=== PATIENT | female | born 1940 | race Caucasian/White ===

== ENCOUNTER 2021-06-25 10:48 | Inpatient (IN) | payer MEDICARE, OTHER ==
[2021-06-25] MEDS ORDERED: Sodium Chloride 0.9% 10 ML Syringe FLUSH PRN ×3 (11:15→16:15)
--- NOTE | 2021-06-25 12:11 | CR ---
Chest: Portable view of the chest was obtained. Comparison: Prior chest x-ray of 10/26/15. Heart is enlarged. Slight tortuosity of the thoracic aorta is seen. Pulmonary vessels are mildly congested. Possible small right-sided pleural effusion. Mild increased density within the right lung base is seen either due to atelectasis or small area of pneumonia. Bony structures show nothing acute. Impression: 1. Findings suspicious for mild CHF. 2. Possible small right-sided pleural effusion. 3. Mild parenchymal density is also noted within the right lung base either due to atelectasis or small area of pneumonia. Diagnostic code #3
[2021-06-25 12:14] LABS: CORONAVIRUS COVID-19 NAA NEGATIVE (NEGATIVE)
--- NOTE | 2021-06-25 12:31 | EDM.PDOC ---
ED HPI GENERAL MEDICAL PROBLEM - General Chief Complaint: Respiratory Problem Stated Complaint: SOB Time Seen by Provider: 06/25/21 11:05 Source of Information: Reports: Patient History Limitations: Reports: No Limitations - History of Present Illness INITIAL COMMENTS - FREE TEXT/NARRATIVE: The patient presents from Dr Friend's office with shortness of breath and chest tightness. This has been going on for a couple of week. She went to see Dr Friend and her oxygen saturations were in the 70s. The shortness of breath is worse when she is laying on her back and with exertion. She noted that she had palpitations at times when this started. She has no fever, chills, or cough. She has no abdominal pain, nausea or vomiting. She has some swelling to her legs. She has a history of essential hypertension, palpitations, diastolic dysfunction, sleep apnea and hypothyroidism. She is not on any diuretics and she has never needed any. She has bee vaccinated for COVID and influenza. Onset: Gradual Duration: Week(s): (2) Severity: Moderate Improves with: Reports: None Worsens with: Reports: None Associated Symptoms: Reports: Shortness of Breath. Denies: Chest Pain, Cough, Fever/Chills, Headaches, Nausea/Vomiting - Related Data Allergies Allergy/AdvReac Type Severity Reaction Status Date / Time quinine Allergy Severe Hives Verified 06/25/21 11:03 Home Meds: Home Meds Albuterol/Ipratropium [DuoNeb 3.0-0.5 MG/3 ML] 3 ml NEB Q8HRRT PRN #30 neb 10/26/15 [Rx] Amoxicillin/Potassium Clav [Augmentin 875-125 Tablet] 1 each PO BID #20 tablet 10/26/15 [Rx] Hydrochlorothiazide 25 mg PO DAILY 10/26/15 [History] Levothyroxine 25 mcg PO ACBREAKFAST 10/26/15 [History] Losartan/Hydrochlorothiazide [Losartan-HCTZ 100-25 MG] 1 tab PO DAILY 10/26/15 [History] Nebulizer and Compressor [Comp-Air Elite Comp System] 1 each MC Q8H #1 each 10/26/15 [Rx] Potassium Chloride [Klor-Con 10] 20 meq PO DAILY 10/26/15 [History] Prochlorperazine [Compazine] 10 mg PO Q8H PRN #20 tablet 10/26/15 [Rx] Spironolactone [Aldactone] 25 mg PO DAILY 10/26/15 [History] atenoloL [Atenolol] 50 mg PO DAILY 10/26/15 [History] traMADol HCl [Tramadol HCl] 50 mg PO BID 10/26/15 [History] Past Medical History HEENT History: Reports: Cataract, Macular Degeneration Cardiovascular History: Reports: Hypertension Respiratory History: Reports: Sleep Apnea RADIOLOGY SPECIALIST History: Reports: Other RADIOLOGY SPECIALIST History: Tubal ligation Musculoskeletal History: Reports: Arthritis Endocrine/Metabolic History: Reports: Diabetes, Type II - Past Surgical History HEENT Surgical History: Reports: Cataract Surgery GI Surgical History: Reports: Appendectomy Other GI Surgeries/Procedures: exlap Female Surgical History: Reports: Hysterectomy, Tubal Ligation Social & Family History - Tobacco Use Tobacco Use Status *Q: Former Tobacco User Used Tobacco, but Quit: Yes Month/Year Tobacco Last Used: 30 years ago - Recreational Drug Use Recreational Drug Use: No ED ROS GENERAL - Review of Systems Review Of Systems: See Below Constitutional: Reports: No Symptoms HEENT: Reports: No Symptoms Respiratory: Reports: Shortness of Breath Cardiovascular: Reports: Edema, Palpitations. Denies: Chest Pain Endocrine: Reports: No Symptoms GI/Abdominal: Reports: No Symptoms : Reports: No Symptoms Musculoskeletal: Reports: No Symptoms ED EXAM, GENERAL - Physical Exam Exam: See Below Exam Limited By: No Limitations General Appearance: Alert, No Apparent Distress Ears: Normal External Exam Nose: Normal Inspection Head: Atraumatic, Normocephalic Neck: Normal Inspection Respiratory/Chest: No Respiratory Distress, Decreased Breath Sounds Cardiovascular: Regular Rate, Rhythm, No Edema, No Murmur GI/Abdominal: Soft, Non-Tender, No Organomegaly, No Mass Back Exam: Normal Inspection Extremities: Pedal Edema Neurological: Alert, Oriented, No Motor/Sensory Deficits #1 Interpretation EKG Date: 06/25/21 Time: 11:06 Rhythm: Other (sinus bradycardia) Rate (Beats/Min): 59 [place]: Normal P-Wave: Present QRS: Normal ST-T: Normal QT: Normal Course - Vital Signs Last Recorded V/S: Last Vital Signs Temp 97.1 F 06/25/21 11:00 Pulse 66 06/25/21 11:00 Resp 23 H 06/25/21 11:00 BP 153/78 H 06/25/21 11:00 Pulse Ox 75 L 06/25/21 11:00 - Orders/Labs/Meds Orders: Active Orders 24 hr Category Date Time Status Admission Status [Patient Status] [ADT] Routine ADT 06/25/21 15:38 Active Cardiac Monitoring [RC] . DIRECTED Care 06/25/21 11:15 Active Oxygen Therapy [RC] PRN Care 06/25/21 11:15 Active Peripheral IV Care [RC] . DIRECTED Care 06/25/21 11:16 Active Sodium Chloride 0.9% [Normal Saline] 100 ml Med 06/25/21 13:00 Active IV ASDIRECTED Sodium Chloride 0.9% [Saline Flush] Med 06/25/21 11:15 Active 10 ml FLUSH ASDIRECTED PRN Sodium Chloride 0.9% [Saline Flush] Med 06/25/21 12:46 Active 10 ml FLUSH ONETIME PRN Peripheral IV Insertion Adult [OM.PC] Stat Oth 06/25/21 11:15 Ordered Medication Orders Sodium Chloride (Normal Saline) 100 mls @ 75 mls/hr IV ASDIRECTED JOSÉ ANTONIO Last Admin: 06/25/21 12:52 Dose: 75 mls/hr Documented by: YOVANA Sodium Chloride (Sodium Chloride 0.9% 10 Ml Syringe) 10 ml FLUSH ASDIRECTED PRN PRN Reason: Keep Vein Open Last Admin: 06/25/21 11:25 Dose: 10 ml Documented by: DICKSON Sodium Chloride (Sodium Chloride 0.9% 10 Ml Syringe) 10 ml FLUSH ONETIME PRN PRN Reason: IV FLUSH Last Admin: 06/25/21 12:52 Dose: 10 ml Documented by: YOVANA Labs: Laboratory Tests 06/25/21 06/25/21 06/25/21 Range/Units 11:15 11:15 11:15 WBC 4.20 (3.98-10.04) K/mm3 RBC 5.70 H (3.98-5.22) M/mm3 Hgb 15.5 (11.2-15.7) gm/dl Hct 52.6 H (34.1-44.9) % MCV 92.3 D (79.4-94.8) fl MCH 27.2 (25.6-32.2) pg MCHC 29.5 L (32.2-35.5) g/dl RDW Std Deviation 60.3 H (36.4-46.3) fL Plt Count 115 L (182-369) K/mm3 MPV 9.6 (9.4-12.3) fl Neut % (Auto) 59.4 (34.0-71.1) % Lymph % (Auto) 29.0 (19.3-51.7) % [place] % (Auto) 9.5 (4.7-12.5) % Eos % (Auto) 1.7 (0.7-5.8) Baso % (Auto) 0.2 (0.1-1.2) % Neut # (Auto) 2.49 (1.56-6.13) K/mm3 Lymph # (Auto) 1.22 (1.18-3.74) K/mm3 [place] # (Auto) 0.40 H (0.24-0.36) K/mm3 Eos # (Auto) 0.07 (0.04-0.36) K/mm3 Baso # (Auto) 0.01 (0.01-0.08) K/mm3 PT 11.8 (9.7-12.0) SECONDS INR 1.07 APTT 26.4 (21.7-31.4) SECONDS D-Dimer, Quantitative 1.34 H (0.19-0.50) mg/L Sodium 145 (136-145) mEq/L Potassium 4.7 (3.5-5.1) mEq/L Chloride 105 (98-107) mEq/L Carbon Dioxide 36 H (21-32) mEq/L Anion Gap 8.7 (5-15) BUN 22 H (7-18) mg/dL Creatinine 1.1 H (0.55-1.02) mg/dL Est Cr Clr Drug Dosing 39.67 mL/min Estimated GFR (MDRD) 48 (>60) mL/min BUN/Creatinine Ratio 20.0 H (14-18) Glucose 106 H (70-99) mg/dL Lactic Acid (0.4-2.0) mmol/L Calcium 9.0 (8.5-10.1) mg/dL Total Bilirubin 1.2 H (0.2-1.0) mg/dL AST 14 L (15-37) U/L ALT 10 L (14-59) U/L Alkaline Phosphatase 61 (46-116) U/L Troponin I < 0.017 (0.00-0.056) ng/mL C-Reactive Protein <0.2 (<1.0) mg/dL NT-Pro-B Natriuret Pep (0-450) pg/mL Total Protein 6.7 (6.4-8.2) g/dl Albumin 3.8 (3.4-5.0) g/dl Globulin 2.9 gm/dL Albumin/Globulin Ratio 1.3 (1-2) Influenza Type A RNA (NEGATIVE) Influenza Type B RNA (NEGATIVE) SARS-CoV-2 RNA (MELIDA) (NEGATIVE) 06/25/21 06/25/21 06/25/21 Range/Units 11:15 11:28 11:29 WBC (3.98-10.04) K/mm3 RBC (3.98-5.22) M/mm3 Hgb (11.2-15.7) gm/dl Hct (34.1-44.9) % MCV (79.4-94.8) fl MCH (25.6-32.2) pg MCHC (32.2-35.5) g/dl RDW Std Deviation (36.4-46.3) fL Plt Count (182-369) K/mm3 MPV (9.4-12.3) fl Neut % (Auto) (34.0-71.1) % Lymph % (Auto) (19.3-51.7) % [place] % (Auto) (4.7-12.5) % Eos % (Auto) (0.7-5.8) Baso % (Auto) (0.1-1.2) % Neut # (Auto) (1.56-6.13) K/mm3 Lymph # (Auto) (1.18-3.74) K/mm3 [place] # (Auto) (0.24-0.36) K/mm3 Eos # (Auto) (0.04-0.36) K/mm3 Baso # (Auto) (0.01-0.08) K/mm3 PT (9.7-12.0) SECONDS INR APTT (21.7-31.4) SECONDS D-Dimer, Quantitative (0.19-0.50) mg/L Sodium (136-145) mEq/L Potassium (3.5-5.1) mEq/L Chloride (98-107) mEq/L Carbon Dioxide (21-32) mEq/L Anion Gap (5-15) BUN (7-18) mg/dL Creatinine (0.55-1.02) mg/dL Est Cr Clr Drug Dosing mL/min Estimated GFR (MDRD) (>60) mL/min BUN/Creatinine Ratio (14-18) Glucose (70-99) mg/dL Lactic Acid 0.7 (0.4-2.0) mmol/L Calcium (8.5-10.1) mg/dL Total Bilirubin (0.2-1.0) mg/dL AST (15-37) U/L ALT (14-59) U/L Alkaline Phosphatase (46-116) U/L Troponin I (0.00-0.056) ng/mL C-Reactive Protein (<1.0) mg/dL NT-Pro-B Natriuret Pep 6293 H (0-450) pg/mL Total Protein (6.4-8.2) g/dl Albumin (3.4-5.0) g/dl Globulin gm/dL Albumin/Globulin Ratio (1-2) Influenza Type A RNA Negative (NEGATIVE) Influenza Type B RNA Negative (NEGATIVE) SARS-CoV-2 RNA (MELIDA) Negative (NEGATIVE) Meds: Medications Generic Name Dose Route Start Last Admin Trade Name Freq PRN Reason Stop Dose Admin Sodium Chloride 100 mls @ 75 mls/hr 06/25/21 13:00 06/25/21 12:52 Normal Saline IV 75 mls/hr ASDIRECTED JOSÉ ANTONIO Administration Sodium Chloride 10 ml 06/25/21 11:15 06/25/21 11:25 Sodium Chloride 0.9% 10 Ml Syringe FLUSH 10 ml ASDIRECTED PRN Administration Keep Vein Open Sodium Chloride 10 ml 06/25/21 12:46 06/25/21 12:52 Sodium Chloride 0.9% 10 Ml Syringe FLUSH 10 ml ONETIME PRN Administration IV FLUSH Discontinued Medications Generic Name Dose Route Start Last Admin Trade Name Freq PRN Reason Stop Dose Admin Furosemide 40 mg 06/25/21 13:39 06/25/21 13:43 Furosemide 40 Mg/4 Ml Vial IVPUSH 06/25/21 13:40 40 mg NOW ONE Administration Iopamidol 100 ml 06/25/21 12:46 06/25/21 12:51 Iopamidol 755 Mg/Ml 100 Ml Bottle IVPUSH 06/25/21 12:47 100 ml ONETIME ONE Administration - Re-Assessments/Exams Free Text/Narrative Re-Assessment/Exam: 06/25/21 12:41 I ordered oxygen, IV saline lock, EKG, CXR and labs. Her EKG shows a sinus bradycardia at a rate of 59 with no acute changes. Her CXR shows findings suspicious for mild CHF. Possible small right sided pleural effusion. Mild parenchymal density is also noted within the right lung base either due to atelectasis or small area of pneumonia. Her WBC is normal. Her platelets are low at 115. Her D-dimer is elevated at 1.34. Her creatinine is elevated at 1.1. Her lactic acid is normal. Her total bili is elevated at 1.2. Her troponin is negative. Her CRP is negative. Her COVID and flu are negative. I have ordered a CT angio of her chest. I am waiting for results now. 06/25/21 13:[address] angio of her chest shows no findings of pulmonary embolism. Mild adenopathy within the mediastinum. Adenopathy is also noted within the upper abdomen. Spleen is enlarged. Small left sided pleural effusion with moderate r ight-sided pleural effusion. Air filled cysts within the right upper chest. Scattered area of atelectasis are noted within both lung bases. I have ordered lasix 40mg IV. She is doing good on oxygen. I feel she may have to be admitted. My charge nurse is checking in they have beds here. 06/25/21 15:41 We did have a bed open up. I talked with Dr Basurto and he accepted the patient. Departure - Departure Time of Disposition: 15:45 Disposition: Admitted As Inpatient 67 Condition: Poor Clinical Impression: Hypoxia CHF exacerbation Qualifiers: Heart failure type: diastolic Qualified Code(s): I50.33 - Acute on chronic diastolic (congestive) heart failure - Discharge Information Referrals: Heena Friend MD [Primary Care Provider] - Forms: ED Department Discharge Sepsis Event Note (ED) - Evaluation Sepsis Screening Result: No Definite Risk - Focused Exam Vital Signs: Vital Signs Temp Pulse Resp BP Pulse Ox 06/25/21 11:00 97.1 F 66 23 H 153/78 H 75 L - My Orders Last 24 Hours: My Active Orders 06/25/21 11:15 Cardiac Monitoring [RC] . DIRECTED Oxygen Therapy [RC] PRN Sodium Chloride 0.9% [Saline Flush] 10 ml FLUSH ASDIRECTED PRN Peripheral IV Insertion Adult [OM.PC] Stat 06/25/21 11:16 Peripheral IV Care [RC] . DIRECTED 06/25/21 12:46 Sodium Chloride 0.9% [Saline Flush] 10 ml FLUSH ONETIME PRN 06/25/21 13:00 Sodium Chloride 0.9% [Normal Saline] 100 ml IV ASDIRECTED 06/25/21 15:38 Admission Status [Patient Status] [ADT] Routine - Assessment/Plan Last 24 Hours: My Active Orders 06/25/21 11:15 Cardiac Monitoring [RC] . DIRECTED Oxygen Therapy [RC] PRN Sodium Chloride 0.9% [Saline Flush] 10 ml FLUSH ASDIRECTED PRN Peripheral IV Insertion Adult [OM.PC] Stat 06/25/21 11:16 Peripheral IV Care [RC] . DIRECTED 06/25/21 12:46 Sodium Chloride 0.9% [Saline Flush] 10 ml FLUSH ONETIME PRN 06/25/21 13:00 Sodium Chloride 0.9% [Normal Saline] 100 ml IV ASDIRECTED 06/25/21 15:38 Admission Status [Patient Status] [ADT] Routine
[2021-06-25] MEDS ORDERED: Iopamidol 755 Mg/ML 100 ML Bottle IVPUSH ONE (12:46)
[2021-06-25] MEDS ORDERED: Sodium Chloride 0.9% 100 ML IV SCH (13:00)
--- NOTE | 2021-06-25 13:29 | CT ---
CT chest Technique: Multiple axial sections were obtained from above the lung apices inferiorly through the lung bases. Intravenous contrast was utilized. Study has been performed as a pulmonary angiogram protocol. Comparison: Findings: Pulmonary arteries are well opacified. No filling defects are seen to indicate pulmonary embolism. No pericardial thickening is seen. Thoracic aorta shows no aneurysm. Slightly prominent lymph nodes are seen within the mediastinum. No axillary adenopathy is seen. Minimal left-sided pleural effusion is seen. Moderate right-sided pleural effusion is noted. Spleen is enlarged. Enlarged lymph node is seen within the upper abdomen measuring 3.1 cm. Other adenopathy is seen within the upper abdomen. Two air-filled cysts are seen within the right upper lung with largest abutting the pleura measuring 4.6 cm. Mild atelectasis is seen within both lung bases. Bone window settings were reviewed which show diffuse degenerative change within the spine. No acute osseous abnormality is appreciated. Impression: 1. No findings of pulmonary embolism. 2. Mild adenopathy within the mediastinum. Adenopathy is also noted within the upper abdomen. 3. Spleen is enlarged. 4. Small left-sided pleural effusion with moderate right-sided pleural effusion. 5. Air-filled cysts within the right upper chest. Scattered areas of atelectasis are noted within both lung bases. Diagnostic code #3
[2021-06-25] MEDS ORDERED: Furosemide 40 MG/4 ML VIAL IVPUSH ONE (13:39)
[2021-06-25] MEDS ORDERED: Ondansetron 4 MG Tab.DIS PO PRN (16:15)
[2021-06-25] MEDS ORDERED: Albuterol/Ipratropium 3.0-0.5 MG/3 ML Neb Soln NEB PRN (16:15)
[2021-06-25] MEDS ORDERED: Morphine 2 MG/ML SYRINGE IVPUSH PRN (16:15)
[2021-06-25] MEDS ORDERED: Acetaminophen 325 MG Tab PO PRN (16:15)
[2021-06-25] MEDS ORDERED: oxyCODONE 5 MG Tab PO PRN (16:15)
[2021-06-25] MEDS ORDERED: Docusate Sodium 100 MG Cap PO PRN (16:15)
--- NOTE | 2021-06-25 16:24 | PCM.HP.2 ---
H&P History of Present Illness - General Date of Service: 06/25/21 Admit Problem/Dx: Admission Diagnosis/Problem Admission Diagnosis/Problem new onset congestive heart failure with hypoxia Source of Information: Patient History Limitations: Reports: No Limitations - History of Present Illness Initial Comments - Free Text/Narative: The patient is an 81-year-old lady who had presented to the emergency department from her primary care physician's office for shortness of breath and chest tightness. Patient says that the tightness and discomfort has been going on for at least 2 weeks. And her primary care physician's office her saturations were in the 70s. She has had orthopnea. No prior similar illness. No history of cardiac illness. No tobacco use. The patient also says that she is breathing better when she is sitting up. No other specific aggravating or relieving factors. She is denied any pedal edema. The patient also reports heart palpitations prior to the start of her shortness of breath. She does have a history of hypertension, diabetes and chronic kidney disease. The patient has had COVID-19 and influenza vaccine. Onset of Symptoms: Reports: Gradual Duration of Symptoms: Reports: Week(s): Location: Reports: Generalized Quality: Reports: Ache, Pressure Severity: Moderate Improves with: Reports: Rest, Other (Sitting up) Worsens with: Reports: Other (Lying flat or activity) Associated Symptoms: Reports: Cough - Related Data Allergies/Adverse Reactions: Allergies Allergy/AdvReac Type Severity Reaction Status Date / Time quinine Allergy Intermediate Hives Verified 06/25/21 16:24 Home Medications: Home Meds Albuterol/Ipratropium [DuoNeb 3.0-0.5 MG/3 ML] 3 ml NEB Q8HRRT PRN #30 neb 10/26/15 [Rx] Amoxicillin/Potassium Clav [Augmentin 875-125 Tablet] 1 each PO BID #20 tablet 10/26/15 [Rx] Hydrochlorothiazide 25 mg PO DAILY 10/26/15 [History] Levothyroxine 25 mcg PO ACBREAKFAST 10/26/15 [History] Losartan/Hydrochlorothiazide [Losartan-HCTZ 100-25 MG] 1 tab PO DAILY 10/26/15 [History] Nebulizer and Compressor [Comp-Air Elite Comp System] 1 each MC Q8H #1 each 02/28/16 [Rx] Potassium Chloride [Klor-Con 10] 20 meq PO DAILY 10/26/15 [History] Prochlorperazine [Compazine] 10 mg PO Q8H PRN #20 tablet 10/26/15 [Rx] Spironolactone [Aldactone] 25 mg PO DAILY 10/26/15 [History] atenoloL [Atenolol] 50 mg PO DAILY 10/26/15 [History] traMADol HCl [Tramadol HCl] 50 mg PO BID 10/26/15 [History] Past Medical History HEENT History: Reports: Cataract, Macular Degeneration Cardiovascular History: Reports: Hypertension Respiratory History: Reports: Sleep Apnea Gastrointestinal History: Reports: None Genitourinary History: Reports: None 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 OB/BYN History: Tubal ligation Musculoskeletal History: Reports: Arthritis Neurological History: Reports: None Psychiatric History: Reports: None Endocrine/Metabolic History: Reports: Diabetes, Type II Hematologic History: Reports: None - Past Surgical History HEENT Surgical History: Reports: Cataract Surgery GI Surgical History: Reports: Appendectomy Other GI Surgeries/Procedures: exlap Female Surgical History: Reports: Hysterectomy, Tubal Ligation Social & Family History - Tobacco Use Tobacco Use Status *Q: Former Tobacco User Used Tobacco, but Quit: Yes Month/Year Tobacco Last Used: 30 years ago - Recreational Drug Use Recreational Drug Use: No - Living Situation & Occupation Living situation: Reports: , with Spouse Occupation: Retired H&P Review of Systems - Review of Systems: Review Of Systems: See Below General: Reports: Weakness, Fatigue HEENT: Reports: No Symptoms Pulmonary: Reports: Shortness of Breath, Wheezing Cardiovascular: Reports: Palpitations, Dyspnea on Exertion, Orthopnea. Denies: Edema Gastrointestinal: Reports: No Symptoms Genitourinary: Reports: No Symptoms Musculoskeletal: Reports: No Symptoms Skin: Reports: No Symptoms Psychiatric: Reports: No Symptoms Neurological: Reports: No Symptoms Hematologic/Lymphatic: Reports: No Symptoms Immunologic: Reports: No Symptoms Exam - Exam Exam: See Below - Vital Signs Vital Signs: Last Vital Signs Temp 36.2 C 06/25/21 11:00 Pulse 66 06/25/21 11:00 Resp 23 H 06/25/21 11:00 BP 153/78 H 06/25/21 11:00 Pulse Ox 75 L 06/25/21 11:00 Weight: 108.862 kg - Exam Quality Assessment: Supplemental Oxygen General: Alert, Oriented, Cooperative, Mild Distress HEENT: Conjunctiva Clear, EACs Clear, EOMI, Hearing Intact, Mucosa Moist & [place], PERRLA Neck: Supple, Trachea Midline, +2 Carotid Pulse wo Bruit, JVD Lungs: Decreased Breath Sounds, Crackles Cardiovascular: Regular Rate, Regular Rhythm GI/Abdominal Exam: Normal Bowel Sounds, Soft, Non-Tender, No Distention (Female) Exam: Deferred Rectal (Female) Exam: Deferred Back Exam: Normal Inspection, Full Range of Motion Extremities: Normal Inspection, Normal Range of Motion, No Pedal Edema Skin: Warm, Dry, Intact Neurological: Cranial Nerves Intact, Normal Speech Neuro Extensive - Mental Status: Alert, Oriented x3 Psychiatric: Alert, Normal Affect, Normal Mood - Patient Data Lab Results Last 24 hrs: Laboratory Results - last 24 hr 06/25/21 06/25/21 06/25/21 Range/Units 11:15 11:15 11:15 WBC 4.20 (3.98-10.04) K/mm3 RBC 5.70 H (3.98-5.22) M/mm3 Hgb 15.5 (11.2-15.7) gm/dl Hct 52.6 H (34.1-44.9) % MCV 92.3 D (79.4-94.8) fl MCH 27.2 (25.6-32.2) pg MCHC 29.5 L (32.2-35.5) g/dl RDW Std Deviation 60.3 H (36.4-46.3) fL Plt Count 115 L (182-369) K/mm3 MPV 9.6 (9.4-12.3) fl Neut % (Auto) 59.4 (34.0-71.1) % Lymph % (Auto) 29.0 (19.3-51.7) % [place] % (Auto) 9.5 (4.7-12.5) % Eos % (Auto) 1.7 (0.7-5.8) Baso % (Auto) 0.2 (0.1-1.2) % Neut # (Auto) 2.49 (1.56-6.13) K/mm3 Lymph # (Auto) 1.22 (1.18-3.74) K/mm3 [place] # (Auto) 0.40 H (0.24-0.36) K/mm3 Eos # (Auto) 0.07 (0.04-0.36) K/mm3 Baso # (Auto) 0.01 (0.01-0.08) K/mm3 PT 11.8 (9.7-12.0) SECONDS INR 1.07 APTT 26.4 (21.7-31.4) SECONDS D-Dimer, Quantitative 1.34 H (0.19-0.50) mg/L Sodium 145 (136-145) mEq/L Potassium 4.7 (3.5-5.1) mEq/L Chloride 105 (98-107) mEq/L Carbon Dioxide 36 H (21-32) mEq/L Anion Gap 8.7 (5-15) BUN 22 H (7-18) mg/dL Creatinine 1.1 H (0.55-1.02) mg/dL Est Cr Clr Drug Dosing 39.67 mL/min Estimated GFR (MDRD) 48 (>60) mL/min BUN/Creatinine Ratio 20.0 H (14-18) Glucose 106 H (70-99) mg/dL Lactic Acid (0.4-2.0) mmol/L Calcium 9.0 (8.5-10.1) mg/dL Total Bilirubin 1.2 H (0.2-1.0) mg/dL AST 14 L (15-37) U/L ALT 10 L (14-59) U/L Alkaline Phosphatase 61 (46-116) U/L Troponin I < 0.017 (0.00-0.056) ng/mL C-Reactive Protein <0.2 (<1.0) mg/dL NT-Pro-B Natriuret Pep (0-450) pg/mL Total Protein 6.7 (6.4-8.2) g/dl Albumin 3.8 (3.4-5.0) g/dl Globulin 2.9 gm/dL Albumin/Globulin Ratio 1.3 (1-2) Influenza Type A RNA (NEGATIVE) Influenza Type B RNA (NEGATIVE) SARS-CoV-2 RNA (MELIDA) (NEGATIVE) 06/25/21 06/25/21 06/25/21 Range/Units 11:15 11:28 11:29 WBC (3.98-10.04) K/mm3 RBC (3.98-5.22) M/mm3 Hgb (11.2-15.7) gm/dl Hct (34.1-44.9) % MCV (79.4-94.8) fl MCH (25.6-32.2) pg MCHC (32.2-35.5) g/dl RDW Std Deviation (36.4-46.3) fL Plt Count (182-369) K/mm3 MPV (9.4-12.3) fl Neut % (Auto) (34.0-71.1) % Lymph % (Auto) (19.3-51.7) % [place] % (Auto) (4.7-12.5) % Eos % (Auto) (0.7-5.8) Baso % (Auto) (0.1-1.2) % Neut # (Auto) (1.56-6.13) K/mm3 Lymph # (Auto) (1.18-3.74) K/mm3 [place] # (Auto) (0.24-0.36) K/mm3 Eos # (Auto) (0.04-0.36) K/mm3 Baso # (Auto) (0.01-0.08) K/mm3 PT (9.7-12.0) SECONDS INR APTT (21.7-31.4) SECONDS D-Dimer, Quantitative (0.19-0.50) mg/L Sodium (136-145) mEq/L Potassium (3.5-5.1) mEq/L Chloride (98-107) mEq/L Carbon Dioxide (21-32) mEq/L Anion Gap (5-15) BUN (7-18) mg/dL Creatinine (0.55-1.02) mg/dL Est Cr Clr Drug Dosing mL/min Estimated GFR (MDRD) (>60) mL/min BUN/Creatinine Ratio (14-18) Glucose (70-99) mg/dL Lactic Acid 0.7 (0.4-2.0) mmol/L Calcium (8.5-10.1) mg/dL Total Bilirubin (0.2-1.0) mg/dL AST (15-37) U/L ALT (14-59) U/L Alkaline Phosphatase (46-116) U/L Troponin I (0.00-0.056) ng/mL C-Reactive Protein (<1.0) mg/dL NT-Pro-B Natriuret Pep 6293 H (0-450) pg/mL Total Protein (6.4-8.2) g/dl Albumin (3.4-5.0) g/dl Globulin gm/dL Albumin/Globulin Ratio (1-2) Influenza Type A RNA Negative (NEGATIVE) Influenza Type B RNA Negative (NEGATIVE) SARS-CoV-2 RNA (MELIDA) Negative (NEGATIVE) Result Diagrams: 06/25/21 11:15 06/25/21 11:15 Sepsis Event Note - Evaluation Sepsis Screening Result: No Definite Risk - Focused Exam Vital Signs: Vital Signs Temp Pulse Resp BP Pulse Ox 06/25/21 11:00 36.2 C 66 23 H 153/78 H 75 L - Problem List (1) Acute respiratory failure SNOMED Code(s): 21125278 ICD Code: J96.00 - ACUTE RESPIRATORY FAILURE, UNSP W HYPOXIA OR HYPERCAPNIA Status: Acute Priority: High Current Visit: Yes Qualifiers: Respiratory failure complication: hypoxia Qualified Code(s): J96.01 - Acute respiratory failure with hypoxia (2) Hypoxia SNOMED Code(s): 203556887 ICD Code: R09.02 - HYPOXEMIA Status: Acute Priority: High Current Visit: Yes (3) CHF exacerbation SNOMED Code(s): 746263014, 89419673624733 ICD Code: I50.9 - HEART FAILURE, UNSPECIFIED Status: Acute Priority: High Current Visit: Yes Qualifiers: Heart failure type: unspecified Qualified Code(s): I50.9 - Heart failure, unspecified (4) Hypertension SNOMED Code(s): 41644891 ICD Code: I10 - ESSENTIAL (PRIMARY) HYPERTENSION Status: Chronic Priority: High Current Visit: Yes Qualifiers: Hypertension type: primary hypertension Qualified Code(s): I10 - Essential (primary) hypertension (5) Diabetes mellitus type 2 in obese SNOMED Code(s): 00094215 ICD Code: E11.69 - TYPE 2 DIABETES MELLITUS WITH OTHER SPECIFIED COMPLICATION; E66.9 - OBESITY, UNSPECIFIED Status: Chronic Priority: High Current Visit: Yes (6) Chronic renal insufficiency, stage III (moderate) SNOMED Code(s): 983435861 ICD Code: N18.30 - CHRONIC KIDNEY DISEASE, STAGE 3 UNSPECIFIED Status: Acute Current Visit: Yes Qualifiers: Chronic kidney disease stage 3 subtype: stage 3b (GFR 30-44) Qualified Code(s): N18.32 - Chronic kidney disease, stage 3b Problem List Initiated/Reviewed/Updated: Yes Orders Last 24hrs: Active Orders 24 hr Category Date Time Status Admission Status [Patient Status] [ADT] Routine ADT 06/25/21 15:38 Active Cardiac Monitoring [RC] . DIRECTED Care 06/25/21 11:15 Active Cardiac Monitoring [RC] CONTINUOUS Care 06/25/21 16:15 Ordered Oxygen Therapy [RC] PRN Care 06/25/21 11:15 Active Oxygen Therapy [RC] PRN Care 06/25/21 16:15 Ordered RT Aerosol Therapy [RC] ASDIRECTED Care 06/25/21 16:15 Ordered Up ad [place] [RC] ASDIRECTED Care 06/25/21 16:15 Ordered Vital Signs [RC] Q4H Care 06/25/21 16:15 Ordered Consistent Carbohydrate Diet [DIET] Diet 06/25/21 Dinner Ordered Fluid Restriction [DIET] Diet 06/25/21 Dinner Ordered C-REACTIVE PROTEIN [CHEM] AM Lab 06/26/21 05:11 Ordered CBC WITH AUTO DIFF [HEME] AM Lab 06/26/21 05:11 Ordered COMPREHENSIVE METABOLIC PN,CMP [CHEM] AM Lab 06/26/21 05:11 Ordered D-DIMER QUANTITATIVE [COAG] AM Lab 06/26/21 05:11 Ordered MAGNESIUM [CHEM] AM Lab 06/26/21 05:11 Ordered Acetaminophen [TylenoL] Med 06/25/21 16:15 Ordered 650 mg PO Q4H PRN Albuterol/Ipratropium [DuoNeb 3.0-0.5 MG/3 ML] Med 06/25/21 16:15 Ordered 3 ml NEB Q4H PRN Docusate Sodium [Colace] Med 06/25/21 16:15 Ordered 100 mg PO BID PRN Enoxaparin [Lovenox] Med 06/26/21 09:00 Ordered 40 mg SUBCUT DAILY Furosemide [Lasix] Med 06/26/21 09:00 Ordered 20 mg IVPUSH DAILY Morphine Med 06/25/21 16:15 Ordered 2 mg IVPUSH Q2H PRN Ondansetron [Zofran ODT] Med 06/25/21 16:15 Ordered 4 mg PO Q4H PRN Sodium Chloride 0.9% [Normal Saline] 100 ml Med 06/25/21 13:00 Active IV ASDIRECTED Sodium Chloride 0.9% [Saline Flush] Med 06/25/21 11:15 Active 10 ml FLUSH ASDIRECTED PRN Sodium Chloride 0.9% [Saline Flush] Med 06/25/21 16:15 Ordered 10 ml FLUSH ASDIRECTED PRN Sodium Chloride 0.9% [Saline Flush] Med 06/25/21 12:46 Active 10 ml FLUSH ONETIME PRN Temazepam [Restoril] Med 06/25/21 16:15 Ordered 15 mg PO BEDTIME PRN oxyCODONE Med 06/25/21 16:15 Ordered 5 mg PO Q4H PRN Peripheral IV Insertion Adult [OM.PC] Stat Oth 06/25/21 11:15 Ordered Saline Lock Insert [OM.PC] Routine Oth 06/25/21 16:15 Ordered Resuscitation Status Routine Resus Stat 06/25/21 16:15 Ordered Medication Orders Acetaminophen (Acetaminophen 325 Mg Tab) 650 mg PO Q4H PRN PRN Reason: Pain (Mild 1-3)/fever Albuterol/Ipratropium (Albuterol/Ipratropium 3.0-0.5 Mg/3 Ml Neb Soln) 3 ml NEB Q4H PRN PRN Reason: Shortness Of Breath/wheezing Docusate Sodium (Docusate Sodium 100 Mg Cap) 100 mg PO BID PRN PRN Reason: Constipation Enoxaparin Sodium (Enoxaparin 40 Mg/0.4 Ml Syringe) 40 mg SUBCUT DAILY [facility] Furosemide (Furosemide 20 Mg/2 Ml Vial) 20 mg IVPUSH DAILY [facility] Sodium Chloride (Normal Saline) 100 mls @ 75 mls/hr IV ASDIRECTED JOSÉ ANTONIO Last Admin: 06/25/21 12:52 Dose: 75 mls/hr Documented by: YOVANA Morphine Sulfate (Morphine 2 Mg/Ml Syringe) 2 mg IVPUSH Q2H PRN PRN Reason: Pain (severe 7-10) Stop: 06/26/21 16:15 Ondansetron HCl (Ondansetron 4 Mg Tab.Dis) 4 mg PO Q4H PRN PRN Reason: nausea, able to take PO Oxycodone HCl (Oxycodone 5 Mg Tab) 5 mg PO Q4H PRN PRN Reason: Pain (moderate 4-6) Sodium Chloride (Sodium Chloride 0.9% 10 Ml Syringe) 10 ml FLUSH ASDIRECTED PRN PRN Reason: Keep Vein Open Last Admin: 06/25/21 11:25 Dose: 10 ml Documented by: DICKSON Sodium Chloride (Sodium Chloride 0.9% 10 Ml Syringe) 10 ml FLUSH ONETIME PRN PRN Reason: IV FLUSH Last Admin: 06/25/21 12:52 Dose: 10 ml Documented by: YOVANA Sodium Chloride (Sodium Chloride 0.9% 10 Ml Syringe) 10 ml FLUSH ASDIRECTED PRN PRN Reason: Keep Vein Open Temazepam (Temazepam 15 Mg Cap) 15 mg PO BEDTIME PRN PRN Reason: Sleep Assessment/Plan Comment:: Patient is an 81-year-old lady who essentially has new onset congestive heart failure. She is placed on telemetry. The patient will also have oxygen support titrated to keep her saturations around 92%. Input and outputs will be monitored. She has been admitted as an inpatient and will be placed on her regular carb constant diet with fluid restriction of 2 L. I have also ordered Lasix at the milligrams IV daily as she is already had Lasix in the emergency department. A 2D echocardiogram is also been ordered. Also, repeat laboratory studies have been ordered. The patient will also have DVT prophylaxis with the use of heparin 5000 units subcu every 8 hours. PT OT will also be ordered for the patient. The patient should be appropriate for discharge in 2 to 3 days. - Mortality Measure Prognosis:: Poor
[2021-06-25 17:13] LABS: HEMOGLOBIN A1C 6.7 %
[2021-06-25] MEDS: Heparin Sodium 5,000 Units/ML Vial SUBCUT SCH (18:48)
[2021-06-25] MEDS ORDERED: Temazepam 15 MG Cap PO PRN (21:00)
[2021-06-25] MEDS: Zolpidem 10 MG Tab PO SCH (21:20)
[2021-06-26] MEDS: Heparin Sodium 5,000 Units/ML Vial SUBCUT SCH ×3 (01:06→16:09)
[2021-06-26] MEDS: Furosemide 20 MG/2 ML VIAL IVPUSH SCH (08:36)
--- NOTE | 2021-06-26 08:58 | PCM.PN ---
- General Info Date of Service: 06/26/21 Admission Dx/Problem (Free Text): Admission Diagnosis/Problem Admission Diagnosis/Problem new onset congestive heart failure with hypoxia Subjective Update: The patient is an 81-year-old lady who had been admitted to the emergency department on June 25, 2021 due to worsening shortness of breath from congestive heart failure. The patient says that she had been sick for least 2 weeks. Her COVID-19 testing was negative. The patient is doing better today. She is breathing better. She has been tolerating her diet. She has no other complaints. Functional Status: Reports: Pain Controlled, Tolerating Diet. Denies: New Symptoms - Review of Systems General: Reports: No Symptoms HEENT: Reports: No Symptoms Pulmonary: Reports: Shortness of Breath Cardiovascular: Reports: No Symptoms Gastrointestinal: Reports: No Symptoms Genitourinary: Reports: No Symptoms Musculoskeletal: Reports: No Symptoms Skin: Reports: No Symptoms Neurological: Reports: No Symptoms Psychiatric: Reports: No Symptoms - Patient Data Vitals - Most Recent: Last Vital Signs Temp 36.6 C 06/26/21 05:22 Pulse 58 L 06/26/21 05:22 Resp 20 06/26/21 05:22 BP 110/64 06/26/21 05:22 Pulse Ox 96 06/26/21 05:22 Weight - Most Recent: 108.454 kg I&O - Last 24 Hours: Intake & Output 06/25/21 06/26/21 06/26/21 22:59 06:59 14:59 Intake Total 400 Output Total 2100 Balance -1700 Lab Results Last 24 Hours: Laboratory Results - last 24 hr 06/25/21 06/25/21 06/25/21 Range/Units 11:15 11:15 11:15 WBC 4.20 (3.98-10.04) K/mm3 RBC 5.70 H (3.98-5.22) M/mm3 Hgb 15.5 (11.2-15.7) gm/dl Hct 52.6 H (34.1-44.9) % MCV 92.3 D (79.4-94.8) fl MCH 27.2 (25.6-32.2) pg MCHC 29.5 L (32.2-35.5) g/dl RDW Std Deviation 60.3 H (36.4-46.3) fL Plt Count 115 L (182-369) K/mm3 MPV 9.6 (9.4-12.3) fl Neut % (Auto) 59.4 (34.0-71.1) % Lymph % (Auto) 29.0 (19.3-51.7) % Vance % (Auto) 9.5 (4.7-12.5) % Eos % (Auto) 1.7 (0.7-5.8) Baso % (Auto) 0.2 (0.1-1.2) % Neut # (Auto) 2.49 (1.56-6.13) K/mm3 Lymph # (Auto) 1.22 (1.18-3.74) K/mm3 Vance # (Auto) 0.40 H (0.24-0.36) K/mm3 Eos # (Auto) 0.07 (0.04-0.36) K/mm3 Baso # (Auto) 0.01 (0.01-0.08) K/mm3 PT 11.8 (9.7-12.0) SECONDS INR 1.07 APTT 26.4 (21.7-31.4) SECONDS D-Dimer, Quantitative 1.34 H (0.19-0.50) mg/L Sodium 145 (136-145) mEq/L Potassium 4.7 (3.5-5.1) mEq/L Chloride 105 (98-107) mEq/L Carbon Dioxide 36 H (21-32) mEq/L Anion Gap 8.7 (5-15) BUN 22 H (7-18) mg/dL Creatinine 1.1 H (0.55-1.02) mg/dL Est Cr Clr Drug Dosing 39.67 mL/min Estimated GFR (MDRD) 48 (>60) mL/min BUN/Creatinine Ratio 20.0 H (14-18) Glucose 106 H (70-99) mg/dL Hemoglobin A1c ( - 5.6) % Lactic Acid (0.4-2.0) mmol/L Calcium 9.0 (8.5-10.1) mg/dL Magnesium (1.8-2.4) mg/dL Total Bilirubin 1.2 H (0.2-1.0) mg/dL AST 14 L (15-37) U/L ALT 10 L (14-59) U/L Alkaline Phosphatase 61 (46-116) U/L Troponin I < 0.017 (0.00-0.056) ng/mL C-Reactive Protein <0.2 (<1.0) mg/dL NT-Pro-B Natriuret Pep (0-450) pg/mL Total Protein 6.7 (6.4-8.2) g/dl Albumin 3.8 (3.4-5.0) g/dl Globulin 2.9 gm/dL Albumin/Globulin Ratio 1.3 (1-2) Influenza Type A RNA (NEGATIVE) Influenza Type B RNA (NEGATIVE) SARS-CoV-2 RNA (MELIDA) (NEGATIVE) 06/25/21 06/25/21 06/25/21 Range/Units 11:15 11:15 11:28 WBC (3.98-10.04) K/mm3 RBC (3.98-5.22) M/mm3 Hgb (11.2-15.7) gm/dl Hct (34.1-44.9) % MCV (79.4-94.8) fl MCH (25.6-32.2) pg MCHC (32.2-35.5) g/dl RDW Std Deviation (36.4-46.3) fL Plt Count (182-369) K/mm3 MPV (9.4-12.3) fl Neut % (Auto) (34.0-71.1) % Lymph % (Auto) (19.3-51.7) % Vance % (Auto) (4.7-12.5) % Eos % (Auto) (0.7-5.8) Baso % (Auto) (0.1-1.2) % Neut # (Auto) (1.56-6.13) K/mm3 Lymph # (Auto) (1.18-3.74) K/mm3 Vance # (Auto) (0.24-0.36) K/mm3 Eos # (Auto) (0.04-0.36) K/mm3 Baso # (Auto) (0.01-0.08) K/mm3 PT (9.7-12.0) SECONDS INR APTT (21.7-31.4) SECONDS D-Dimer, Quantitative (0.19-0.50) mg/L Sodium (136-145) mEq/L Potassium (3.5-5.1) mEq/L Chloride (98-107) mEq/L Carbon Dioxide (21-32) mEq/L Anion Gap (5-15) BUN (7-18) mg/dL Creatinine (0.55-1.02) mg/dL Est Cr Clr Drug Dosing mL/min Estimated GFR (MDRD) (>60) mL/min BUN/Creatinine Ratio (14-18) Glucose (70-99) mg/dL Hemoglobin A1c 6.7 H ( - 5.6) % Lactic Acid (0.4-2.0) mmol/L Calcium (8.5-10.1) mg/dL Magnesium (1.8-2.4) mg/dL Total Bilirubin (0.2-1.0) mg/dL AST (15-37) U/L ALT (14-59) U/L Alkaline Phosphatase (46-116) U/L Troponin I (0.00-0.056) ng/mL C-Reactive Protein (<1.0) mg/dL NT-Pro-B Natriuret Pep 6293 H (0-450) pg/mL Total Protein (6.4-8.2) g/dl Albumin (3.4-5.0) g/dl Globulin gm/dL Albumin/Globulin Ratio (1-2) Influenza Type A RNA Negative (NEGATIVE) Influenza Type B RNA Negative (NEGATIVE) SARS-CoV-2 RNA (MELIDA) Negative (NEGATIVE) 06/25/21 06/26/21 06/26/21 Range/Units 11:29 05:15 05:15 WBC 4.53 (3.98-10.04) K/mm3 RBC 5.25 H (3.98-5.22) M/mm3 Hgb 14.4 (11.2-15.7) gm/dl Hct 48.4 H (34.1-44.9) % MCV 92.2 (79.4-94.8) fl MCH 27.4 (25.6-32.2) pg MCHC 29.8 L (32.2-35.5) g/dl RDW Std Deviation 58.4 H (36.4-46.3) fL Plt Count 109 L (182-369) K/mm3 MPV 9.6 (9.4-12.3) fl Neut % (Auto) 53.9 (34.0-71.1) % Lymph % (Auto) 32.0 (19.3-51.7) % Vance % (Auto) 12.4 (4.7-12.5) % Eos % (Auto) 1.3 (0.7-5.8) Baso % (Auto) 0.2 (0.1-1.2) % Neut # (Auto) 2.44 (1.56-6.13) K/mm3 Lymph # (Auto) 1.45 (1.18-3.74) K/mm3 Vance # (Auto) 0.56 H (0.24-0.36) K/mm3 Eos # (Auto) 0.06 (0.04-0.36) K/mm3 Baso # (Auto) 0.01 (0.01-0.08) K/mm3 PT (9.7-12.0) SECONDS INR APTT (21.7-31.4) SECONDS D-Dimer, Quantitative 1.33 H (0.19-0.50) mg/L Sodium (136-145) mEq/L Potassium (3.5-5.1) mEq/L Chloride (98-107) mEq/L Carbon Dioxide (21-32) mEq/L Anion Gap (5-15) BUN (7-18) mg/dL Creatinine (0.55-1.02) mg/dL Est Cr Clr Drug Dosing mL/min Estimated GFR (MDRD) (>60) mL/min BUN/Creatinine Ratio (14-18) Glucose (70-99) mg/dL Hemoglobin A1c ( - 5.6) % Lactic Acid 0.7 (0.4-2.0) mmol/L Calcium (8.5-10.1) mg/dL Magnesium (1.8-2.4) mg/dL Total Bilirubin (0.2-1.0) mg/dL AST (15-37) U/L ALT (14-59) U/L Alkaline Phosphatase (46-116) U/L Troponin I (0.00-0.056) ng/mL C-Reactive Protein (<1.0) mg/dL NT-Pro-B Natriuret Pep (0-450) pg/mL Total Protein (6.4-8.2) g/dl Albumin (3.4-5.0) g/dl Globulin gm/dL Albumin/Globulin Ratio (1-2) Influenza Type A RNA (NEGATIVE) Influenza Type B RNA (NEGATIVE) SARS-CoV-2 RNA (MELIDA) (NEGATIVE) 06/26/21 Range/Units 05:15 WBC (3.98-10.04) K/mm3 RBC (3.98-5.22) M/mm3 Hgb (11.2-15.7) gm/dl Hct (34.1-44.9) % MCV (79.4-94.8) fl MCH (25.6-32.2) pg MCHC (32.2-35.5) g/dl RDW Std Deviation (36.4-46.3) fL Plt Count (182-369) K/mm3 MPV (9.4-12.3) fl Neut % (Auto) (34.0-71.1) % Lymph % (Auto) (19.3-51.7) % Vance % (Auto) (4.7-12.5) % Eos % (Auto) (0.7-5.8) Baso % (Auto) (0.1-1.2) % Neut # (Auto) (1.56-6.13) K/mm3 Lymph # (Auto) (1.18-3.74) K/mm3 Vance # (Auto) (0.24-0.36) K/mm3 Eos # (Auto) (0.04-0.36) K/mm3 Baso # (Auto) (0.01-0.08) K/mm3 PT (9.7-12.0) SECONDS INR APTT (21.7-31.4) SECONDS D-Dimer, Quantitative (0.19-0.50) mg/L Sodium 146 H (136-145) mEq/L Potassium 4.3 (3.5-5.1) mEq/L Chloride 105 (98-107) mEq/L Carbon Dioxide 34 H (21-32) mEq/L Anion Gap 11.3 (5-15) BUN 24 H (7-18) mg/dL Creatinine 1.0 (0.55-1.02) mg/dL Est Cr Clr Drug Dosing 43.63 mL/min Estimated GFR (MDRD) 53 (>60) mL/min BUN/Creatinine Ratio 24.0 H (14-18) Glucose 94 (70-99) mg/dL Hemoglobin A1c ( - 5.6) % Lactic Acid (0.4-2.0) mmol/L Calcium 8.7 (8.5-10.1) mg/dL Magnesium 2.0 (1.8-2.4) mg/dL Total Bilirubin 1.3 H (0.2-1.0) mg/dL AST 17 (15-37) U/L ALT 14 (14-59) U/L Alkaline Phosphatase 53 (46-116) U/L Troponin I (0.00-0.056) ng/mL C-Reactive Protein <0.2 (<1.0) mg/dL NT-Pro-B Natriuret Pep (0-450) pg/mL Total Protein 5.5 L (6.4-8.2) g/dl Albumin 3.4 (3.4-5.0) g/dl Globulin 2.1 gm/dL Albumin/Globulin Ratio 1.6 (1-2) Influenza Type A RNA (NEGATIVE) Influenza Type B RNA (NEGATIVE) SARS-CoV-2 RNA (MELIDA) (NEGATIVE) Med Orders - Current: Current Medications Acetaminophen (Acetaminophen 325 Mg Tab) 650 mg PO Q4H PRN PRN Reason: Pain (Mild 1-3)/fever Albuterol/Ipratropium (Albuterol/Ipratropium 3.0-0.5 Mg/3 Ml Neb Soln) 3 ml NEB Q4H PRN PRN Reason: Shortness Of Breath/wheezing Atenolol (Atenolol 50 Mg Tab) 50 mg PO DAILY [facility] Docusate Sodium (Docusate Sodium 100 Mg Cap) 100 mg PO BID PRN PRN Reason: Constipation Famotidine (Famotidine 20 Mg Tab) 20 mg PO BEDTIME [facility] Furosemide (Furosemide 20 Mg/2 Ml Vial) 20 mg IVPUSH DAILY [facility] Last Admin: 06/26/21 08:36 Dose: 20 mg Documented by: Heparin Sodium (Porcine) (Heparin Sodium 5,000 Units/Ml Vial) 5,000 units SUBCUT Q8H [facility] Last Admin: 06/26/21 08:36 Dose: 5,000 units Documented by: Levothyroxine Sodium (Levothyroxine 25 Mcg Tab) 25 mcg PO ACBREAKFAST [facility] Lisinopril (Lisinopril 2.5 Mg Tab) 2.5 mg PO DAILY [facility] Morphine Sulfate (Morphine 2 Mg/Ml Syringe) 2 mg IVPUSH Q2H PRN PRN Reason: Pain (severe 7-10) Stop: 06/26/21 16:15 Ondansetron HCl (Ondansetron 4 Mg Tab.Dis) 4 mg PO Q4H PRN PRN Reason: nausea, able to take PO Oxybutynin Chloride (Oxybutynin 5 Mg Tab.Er) 5 mg PO DAILY [facility] Oxycodone HCl (Oxycodone 5 Mg Tab) 5 mg PO Q4H PRN PRN Reason: Pain (moderate 4-6) Sertraline HCl (Sertraline 50 Mg Tab) 50 mg PO DAILY [facility] Sodium Chloride (Sodium Chloride 0.9% 10 Ml Syringe) 10 ml FLUSH ASDIRECTED PRN PRN Reason: Keep Vein Open Temazepam (Temazepam 15 Mg Cap) 15 mg PO BEDTIME PRN PRN Reason: Sleep Zolpidem Tartrate (Zolpidem 10 Mg Tab) 10 mg PO BEDTIME JOSÉ ANTONIO Last Admin: 06/25/21 21:20 Dose: 10 mg Documented by: Zolpidem Tartrate (Zolpidem 10 Mg Tab) 10 mg PO BEDTIME JOSÉ ANTONIO Discontinued Medications Enoxaparin Sodium (Enoxaparin 40 Mg/0.4 Ml Syringe) 40 mg SUBCUT DAILY [facility] Furosemide (Furosemide 40 Mg/4 Ml Vial) 40 mg IVPUSH NOW ONE Stop: 06/25/21 13:40 Last Admin: 06/25/21 13:43 Dose: 40 mg Documented by: Sodium Chloride (Normal Saline) 100 mls @ 75 mls/hr IV ASDIRECTED JOSÉ ANTONIO Last Admin: 06/25/21 12:52 Dose: 75 mls/hr Documented by: Iopamidol (Iopamidol 755 Mg/Ml 100 Ml Bottle) 100 ml IVPUSH ONETIME ONE Stop: 06/25/21 12:47 Last Admin: 06/25/21 12:51 Dose: 100 ml Documented by: Sodium Chloride (Sodium Chloride 0.9% 10 Ml Syringe) 10 ml FLUSH ASDIRECTED PRN PRN Reason: Keep Vein Open Last Admin: 06/25/21 11:25 Dose: 10 ml Documented by: Sodium Chloride (Sodium Chloride 0.9% 10 Ml Syringe) 10 ml FLUSH ONETIME PRN PRN Reason: IV FLUSH Last Admin: 06/25/21 12:52 Dose: 10 ml Documented by: - Exam Quality Assessment: Supplemental Oxygen, DVT Prophylaxis General: Alert, Oriented, Cooperative HEENT: Pupils Equal, Pupils Reactive, EOMI Neck: Supple, Trachea Midline Lungs: Normal Respiratory Effort, Crackles Cardiovascular: Regular Rate, Regular Rhythm GI/Abdominal Exam: Normal Bowel Sounds, Soft, Non-Tender, No Distention (Female) Exam: Deferred Back Exam: Normal Inspection, Full Range of Motion Extremities: Normal Inspection, No Pedal Edema Skin: Warm, Dry, Intact Neurological: No New Focal Deficit, Normal Speech Psy/Mental Status: Alert, Normal Affect, Normal Mood - Patient Data Lab Results Last 24 hrs: Laboratory Results - last 24 hr 06/25/21 06/25/21 06/25/21 Range/Units 11:15 11:15 11:15 WBC 4.20 (3.98-10.04) K/mm3 RBC 5.70 H (3.98-5.22) M/mm3 Hgb 15.5 (11.2-15.7) gm/dl Hct 52.6 H (34.1-44.9) % MCV 92.3 D (79.4-94.8) fl MCH 27.2 (25.6-32.2) pg MCHC 29.5 L (32.2-35.5) g/dl RDW Std Deviation 60.3 H (36.4-46.3) fL Plt Count 115 L (182-369) K/mm3 MPV 9.6 (9.4-12.3) fl Neut % (Auto) 59.4 (34.0-71.1) % Lymph % (Auto) 29.0 (19.3-51.7) % Vance % (Auto) 9.5 (4.7-12.5) % Eos % (Auto) 1.7 (0.7-5.8) Baso % (Auto) 0.2 (0.1-1.2) % Neut # (Auto) 2.49 (1.56-6.13) K/mm3 Lymph # (Auto) 1.22 (1.18-3.74) K/mm3 Vance # (Auto) 0.40 H (0.24-0.36) K/mm3 Eos # (Auto) 0.07 (0.04-0.36) K/mm3 Baso # (Auto) 0.01 (0.01-0.08) K/mm3 PT 11.8 (9.7-12.0) SECONDS INR 1.07 APTT 26.4 (21.7-31.4) SECONDS D-Dimer, Quantitative 1.34 H (0.19-0.50) mg/L Sodium 145 (136-145) mEq/L Potassium 4.7 (3.5-5.1) mEq/L Chloride 105 (98-107) mEq/L Carbon Dioxide 36 H (21-32) mEq/L Anion Gap 8.7 (5-15) BUN 22 H (7-18) mg/dL Creatinine 1.1 H (0.55-1.02) mg/dL Est Cr Clr Drug Dosing 39.67 mL/min Estimated GFR (MDRD) 48 (>60) mL/min BUN/Creatinine Ratio 20.0 H (14-18) Glucose 106 H (70-99) mg/dL Hemoglobin A1c ( - 5.6) % Lactic Acid (0.4-2.0) mmol/L Calcium 9.0 (8.5-10.1) mg/dL Magnesium (1.8-2.4) mg/dL Total Bilirubin 1.2 H (0.2-1.0) mg/dL AST 14 L (15-37) U/L ALT 10 L (14-59) U/L Alkaline Phosphatase 61 (46-116) U/L Troponin I < 0.017 (0.00-0.056) ng/mL C-Reactive Protein <0.2 (<1.0) mg/dL NT-Pro-B Natriuret Pep (0-450) pg/mL Total Protein 6.7 (6.4-8.2) g/dl Albumin 3.8 (3.4-5.0) g/dl Globulin 2.9 gm/dL Albumin/Globulin Ratio 1.3 (1-2) Influenza Type A RNA (NEGATIVE) Influenza Type B RNA (NEGATIVE) SARS-CoV-2 RNA (MELIDA) (NEGATIVE) 06/25/21 06/25/21 06/25/21 Range/Units 11:15 11:15 11:28 WBC (3.98-10.04) K/mm3 RBC (3.98-5.22) M/mm3 Hgb (11.2-15.7) gm/dl Hct (34.1-44.9) % MCV (79.4-94.8) fl MCH (25.6-32.2) pg MCHC (32.2-35.5) g/dl RDW Std Deviation (36.4-46.3) fL Plt Count (182-369) K/mm3 MPV (9.4-12.3) fl Neut % (Auto) (34.0-71.1) % Lymph % (Auto) (19.3-51.7) % Vance % (Auto) (4.7-12.5) % Eos % (Auto) (0.7-5.8) Baso % (Auto) (0.1-1.2) % Neut # (Auto) (1.56-6.13) K/mm3 Lymph # (Auto) (1.18-3.74) K/mm3 Vance # (Auto) (0.24-0.36) K/mm3 Eos # (Auto) (0.04-0.36) K/mm3 Baso # (Auto) (0.01-0.08) K/mm3 PT (9.7-12.0) SECONDS INR APTT (21.7-31.4) SECONDS D-Dimer, Quantitative (0.19-0.50) mg/L Sodium (136-145) mEq/L Potassium (3.5-5.1) mEq/L Chloride (98-107) mEq/L Carbon Dioxide (21-32) mEq/L Anion Gap (5-15) BUN (7-18) mg/dL Creatinine (0.55-1.02) mg/dL Est Cr Clr Drug Dosing mL/min Estimated GFR (MDRD) (>60) mL/min BUN/Creatinine Ratio (14-18) Glucose (70-99) mg/dL Hemoglobin A1c 6.7 H ( - 5.6) % Lactic Acid (0.4-2.0) mmol/L Calcium (8.5-10.1) mg/dL Magnesium (1.8-2.4) mg/dL Total Bilirubin (0.2-1.0) mg/dL AST (15-37) U/L ALT (14-59) U/L Alkaline Phosphatase (46-116) U/L Troponin I (0.00-0.056) ng/mL C-Reactive Protein (<1.0) mg/dL NT-Pro-B Natriuret Pep 6293 H (0-450) pg/mL Total Protein (6.4-8.2) g/dl Albumin (3.4-5.0) g/dl Globulin gm/dL Albumin/Globulin Ratio (1-2) Influenza Type A RNA Negative (NEGATIVE) Influenza Type B RNA Negative (NEGATIVE) SARS-CoV-2 RNA (MELIDA) Negative (NEGATIVE) 06/25/21 06/26/21 06/26/21 Range/Units 11:29 05:15 05:15 WBC 4.53 (3.98-10.04) K/mm3 RBC 5.25 H (3.98-5.22) M/mm3 Hgb 14.4 (11.2-15.7) gm/dl Hct 48.4 H (34.1-44.9) % MCV 92.2 (79.4-94.8) fl MCH 27.4 (25.6-32.2) pg MCHC 29.8 L (32.2-35.5) g/dl RDW Std Deviation 58.4 H (36.4-46.3) fL Plt Count 109 L (182-369) K/mm3 MPV 9.6 (9.4-12.3) fl Neut % (Auto) 53.9 (34.0-71.1) % Lymph % (Auto) 32.0 (19.3-51.7) % Vance % (Auto) 12.4 (4.7-12.5) % Eos % (Auto) 1.3 (0.7-5.8) Baso % (Auto) 0.2 (0.1-1.2) % Neut # (Auto) 2.44 (1.56-6.13) K/mm3 Lymph # (Auto) 1.45 (1.18-3.74) K/mm3 Vance # (Auto) 0.56 H (0.24-0.36) K/mm3 Eos # (Auto) 0.06 (0.04-0.36) K/mm3 Baso # (Auto) 0.01 (0.01-0.08) K/mm3 PT (9.7-12.0) SECONDS INR APTT (21.7-31.4) SECONDS D-Dimer, Quantitative 1.33 H (0.19-0.50) mg/L Sodium (136-145) mEq/L Potassium (3.5-5.1) mEq/L Chloride (98-107) mEq/L Carbon Dioxide (21-32) mEq/L Anion Gap (5-15) BUN (7-18) mg/dL Creatinine (0.55-1.02) mg/dL Est Cr Clr Drug Dosing mL/min Estimated GFR (MDRD) (>60) mL/min BUN/Creatinine Ratio (14-18) Glucose (70-99) mg/dL Hemoglobin A1c ( - 5.6) % Lactic Acid 0.7 (0.4-2.0) mmol/L Calcium (8.5-10.1) mg/dL Magnesium (1.8-2.4) mg/dL Total Bilirubin (0.2-1.0) mg/dL AST (15-37) U/L ALT (14-59) U/L Alkaline Phosphatase (46-116) U/L Troponin I (0.00-0.056) ng/mL C-Reactive Protein (<1.0) mg/dL NT-Pro-B Natriuret Pep (0-450) pg/mL Total Protein (6.4-8.2) g/dl Albumin (3.4-5.0) g/dl Globulin gm/dL Albumin/Globulin Ratio (1-2) Influenza Type A RNA (NEGATIVE) Influenza Type B RNA (NEGATIVE) SARS-CoV-2 RNA (MELIDA) (NEGATIVE) 06/26/21 Range/Units 05:15 WBC (3.98-10.04) K/mm3 RBC (3.98-5.22) M/mm3 Hgb (11.2-15.7) gm/dl Hct (34.1-44.9) % MCV (79.4-94.8) fl MCH (25.6-32.2) pg MCHC (32.2-35.5) g/dl RDW Std Deviation (36.4-46.3) fL Plt Count (182-369) K/mm3 MPV (9.4-12.3) fl Neut % (Auto) (34.0-71.1) % Lymph % (Auto) (19.3-51.7) % Vance % (Auto) (4.7-12.5) % Eos % (Auto) (0.7-5.8) Baso % (Auto) (0.1-1.2) % Neut # (Auto) (1.56-6.13) K/mm3 Lymph # (Auto) (1.18-3.74) K/mm3 Vance # (Auto) (0.24-0.36) K/mm3 Eos # (Auto) (0.04-0.36) K/mm3 Baso # (Auto) (0.01-0.08) K/mm3 PT (9.7-12.0) SECONDS INR APTT (21.7-31.4) SECONDS D-Dimer, Quantitative (0.19-0.50) mg/L Sodium 146 H (136-145) mEq/L Potassium 4.3 (3.5-5.1) mEq/L Chloride 105 (98-107) mEq/L Carbon Dioxide 34 H (21-32) mEq/L Anion Gap 11.3 (5-15) BUN 24 H (7-18) mg/dL Creatinine 1.0 (0.55-1.02) mg/dL Est Cr Clr Drug Dosing 43.63 mL/min Estimated GFR (MDRD) 53 (>60) mL/min BUN/Creatinine Ratio 24.0 H (14-18) Glucose 94 (70-99) mg/dL Hemoglobin A1c ( - 5.6) % Lactic Acid (0.4-2.0) mmol/L Calcium 8.7 (8.5-10.1) mg/dL Magnesium 2.0 (1.8-2.4) mg/dL Total Bilirubin 1.3 H (0.2-1.0) mg/dL AST 17 (15-37) U/L ALT 14 (14-59) U/L Alkaline Phosphatase 53 (46-116) U/L Troponin I (0.00-0.056) ng/mL C-Reactive Protein <0.2 (<1.0) mg/dL NT-Pro-B Natriuret Pep (0-450) pg/mL Total Protein 5.5 L (6.4-8.2) g/dl Albumin 3.4 (3.4-5.0) g/dl Globulin 2.1 gm/dL Albumin/Globulin Ratio 1.6 (1-2) Influenza Type A RNA (NEGATIVE) Influenza Type B RNA (NEGATIVE) SARS-CoV-2 RNA (MELIDA) (NEGATIVE) Result Diagrams: 06/26/21 05:15 06/26/21 05:15 Sepsis Event Note - Evaluation Sepsis Screening Result: No Definite Risk - Focused Exam Vital Signs: Vital Signs Temp Pulse Resp BP Pulse Ox 06/26/21 05:22 36.6 C 58 L 20 110/64 96 06/26/21 01:08 36.5 C 66 16 117/95 H 93 L - Problem List & Annotations (1) Acute respiratory failure SNOMED Code(s): 07771259 Code(s): J96.00 - ACUTE RESPIRATORY FAILURE, UNSP W HYPOXIA OR HYPERCAPNIA Status: Acute Priority: High Current Visit: Yes Qualifiers: Respiratory failure complication: hypoxia Qualified Code(s): J96.01 - Acute respiratory failure with hypoxia (2) Hypoxia SNOMED Code(s): 611336016 Code(s): R09.02 - HYPOXEMIA Status: Acute Priority: High Current Visit: Yes (3) CHF exacerbation SNOMED Code(s): 230577073, 20307918935302 Code(s): I50.9 - HEART FAILURE, UNSPECIFIED Status: Acute Priority: High Current Visit: Yes Qualifiers: Heart failure type: unspecified Qualified Code(s): I50.9 - Heart failure, unspecified (4) Hypertension SNOMED Code(s): 05597045 Code(s): I10 - ESSENTIAL (PRIMARY) HYPERTENSION Status: Chronic Priority: High Current Visit: Yes Qualifiers: Hypertension type: primary hypertension Qualified Code(s): I10 - Essential (primary) hypertension (5) Diabetes mellitus type 2 in obese SNOMED Code(s): 89978236 Code(s): E11.69 - TYPE 2 DIABETES MELLITUS WITH OTHER SPECIFIED COMPLICATION; E66.9 - OBESITY, UNSPECIFIED Status: Chronic Priority: High Current Visit: Yes (6) Chronic renal insufficiency, stage III (moderate) SNOMED Code(s): 717810526 Code(s): N18.30 - CHRONIC KIDNEY DISEASE, STAGE 3 UNSPECIFIED Status: Acute Current Visit: Yes Qualifiers: Chronic kidney disease stage 3 subtype: stage 3b (GFR 30-44) Qualified Code(s): N18.32 - Chronic kidney disease, stage 3b - Problem List Review Problem List Initiated/Reviewed/Updated: Yes - My Orders Last 24 Hours: My Active Orders 06/25/21 16:15 Cardiac Monitoring [RC] CONTINUOUS Oxygen Therapy [RC] PRN RT Aerosol Therapy [RC] ASDIRECTED Up ad Shirley [RC] BID Vital Signs [RC] Q4HR Acetaminophen [TylenoL] 650 mg PO Q4H PRN Albuterol/Ipratropium [DuoNeb 3.0-0.5 MG/3 ML] 3 ml NEB Q4H PRN Docusate Sodium [Colace] 100 mg PO BID PRN Morphine 2 mg IVPUSH Q2H PRN Ondansetron [Zofran ODT] 4 mg PO Q4H PRN Sodium Chloride 0.9% [Saline Flush] 10 ml FLUSH ASDIRECTED PRN oxyCODONE 5 mg PO Q4H PRN Saline Lock Insert [OM.PC] Routine Resuscitation Status Routine 06/25/21 Dinner Consistent Carbohydrate Diet [DIET] Fluid Restriction [DIET] Heparin Sodium 5,000 units SUBCUT Q8H 06/25/21 21:00 Temazepam [Restoril] 15 mg PO BEDTIME PRN Zolpidem [Ambien] 10 mg PO BEDTIME 06/26/21 09:00 Furosemide [Lasix] 20 mg IVPUSH DAILY Oxybutynin [Oxybutynin ER] 5 mg PO DAILY Sertraline [Zoloft] 50 mg PO DAILY atenoloL [Tenormin] 50 mg PO DAILY lisinopriL [Prinivil] 2.5 mg PO DAILY 06/26/21 21:00 Famotidine [Pepcid] 20 mg PO BEDTIME Zolpidem [Ambien] 10 mg PO BEDTIME 06/27/21 06:00 Levothyroxine 25 mcg PO ACBREAKFAST - Plan Plan:: Patient is an 81-year-old lady who essentially has new onset congestive heart failure. She is placed on telemetry. The patient will also have oxygen support titrated to keep her saturations around 92%. Input and outputs will be monitored. She has been admitted as an inpatient and will be placed on her regular carb constant diet with fluid restriction of 2 L. I have also ordered Lasix at the milligrams IV daily as she is already had Lasix in the emergency department. A 2D echocardiogram is also been ordered. Also, repeat laboratory studies have been ordered. The patient will also have DVT prophylaxis with the use of heparin 5000 units subcu every 8 hours. PT OT will also be ordered for the patient. The patient should be appropriate for discharge in 2 to 3 days. 06/26/2021 The patient is an 81-year-old lady who was admitted secondary to new onset congestive heart failure. The patient is improving today. She will be continued on her Lasix. She is on fluid restriction. The patient has DVT prophylaxis with the use of heparin 5000 units subcutaneously every 8 hours due to her impaired renal function. PT OT has also been ordered for the patient. Repeat laboratory studies have been ordered. 2D echocardiogram results are currently pending. She is to have oxygen to keep her saturations around 92%. Input and outputs have been ordered. Patient should be appropriate for discharge in 1 to 2 days.
[2021-06-26] MEDS ORDERED: Enoxaparin 40 MG/0.4 ML Syringe SUBCUT SCH (09:00)
[2021-06-26] MEDS: Lisinopril 2.5 MG Tab PO SCH (10:10)
[2021-06-26] MEDS: Sertraline 50 MG Tab PO SCH (10:11)
[2021-06-26] MEDS: Oxybutynin 5 MG Tab.ER PO SCH (10:11)
[2021-06-26] MEDS: Atenolol 50 MG Tab PO SCH (10:11)
[2021-06-26] MEDS: Zolpidem 10 MG Tab PO SCH (20:15)
[2021-06-26] MEDS: Famotidine 20 MG Tab PO SCH (20:15)
[2021-06-26] MEDS ORDERED: Zolpidem 10 MG Tab PO SCH (21:00)
[2021-06-27] MEDS: Heparin Sodium 5,000 Units/ML Vial SUBCUT SCH ×3 (00:31→16:44)
[2021-06-27] MEDS: Levothyroxine 25 MCG Tab PO SCH (05:52)
--- NOTE | 2021-06-27 08:09 | PCM.PN ---
- General Info Date of Service: 06/27/21 Admission Dx/Problem (Free Text): Admission Diagnosis/Problem Admission Diagnosis/Problem new onset congestive heart failure with hypoxia Subjective Update: The patient is an 81-year-old lady who was admitted to acute hospitalization due to congestive heart failure on June 25, 2021. The patient says today she is breathing better. The patient has denied any new pain. The patient says that she has been tolerating her diet. Functional Status: Reports: Pain Controlled, Tolerating Diet. Denies: New Symptoms - Review of Systems General: Reports: No Symptoms HEENT: Reports: No Symptoms Pulmonary: Reports: Cough Cardiovascular: Reports: No Symptoms Gastrointestinal: Reports: No Symptoms Genitourinary: Reports: No Symptoms Musculoskeletal: Reports: No Symptoms Skin: Reports: No Symptoms Neurological: Reports: No Symptoms Psychiatric: Reports: No Symptoms - Patient Data Vitals - Most Recent: Last Vital Signs Temp 36.7 C 06/27/21 05:51 Pulse 59 L 06/27/21 05:51 Resp 17 06/27/21 05:51 BP 120/67 06/27/21 05:51 Pulse Ox 95 06/27/21 05:51 Weight - Most Recent: 104.099 kg I&O - Last 24 Hours: Intake & Output 06/26/21 06/27/21 06/27/21 22:59 06:59 14:59 Intake Total 630 400 Output Total 1200 800 Balance -570 -400 Lab Results Last 24 Hours: Laboratory Results - last 24 hr 06/27/21 06/27/21 Range/Units 05:36 05:36 WBC 4.18 (3.98-10.04) K/mm3 RBC 5.23 H (3.98-5.22) M/mm3 Hgb 14.3 (11.2-15.7) gm/dl Hct 48.3 H (34.1-44.9) % MCV 92.4 (79.4-94.8) fl MCH 27.3 (25.6-32.2) pg MCHC 29.6 L (32.2-35.5) g/dl RDW Std Deviation 58.1 H (36.4-46.3) fL Plt Count 106 L (182-369) K/mm3 MPV 9.3 L (9.4-12.3) fl Neut % (Auto) 48.6 (34.0-71.1) % Lymph % (Auto) 37.8 (19.3-51.7) % [place] % (Auto) 12.0 (4.7-12.5) % Eos % (Auto) 1.2 (0.7-5.8) Baso % (Auto) 0.2 (0.1-1.2) % Neut # (Auto) 2.03 (1.56-6.13) K/mm3 Lymph # (Auto) 1.58 (1.18-3.74) K/mm3 [place] # (Auto) 0.50 H (0.24-0.36) K/mm3 Eos # (Auto) 0.05 (0.04-0.36) K/mm3 Baso # (Auto) 0.01 (0.01-0.08) K/mm3 Sodium 146 H (136-145) mEq/L Potassium 3.9 (3.5-5.1) mEq/L Chloride 105 (98-107) mEq/L Carbon Dioxide 38 H (21-32) mEq/L Anion Gap 6.9 (5-15) BUN 23 H (7-18) mg/dL Creatinine 1.0 (0.55-1.02) mg/dL Est Cr Clr Drug Dosing 43.63 mL/min Estimated GFR (MDRD) 53 (>60) mL/min BUN/Creatinine Ratio 23.0 H (14-18) Glucose 89 (70-99) mg/dL Calcium 8.5 (8.5-10.1) mg/dL Total Bilirubin 1.3 H (0.2-1.0) mg/dL AST 14 L (15-37) U/L ALT 13 L (14-59) U/L Alkaline Phosphatase 53 (46-116) U/L Total Protein 5.4 L (6.4-8.2) g/dl Albumin 3.3 L (3.4-5.0) g/dl Globulin 2.1 gm/dL Albumin/Globulin Ratio 1.6 (1-2) Med Orders - Current: Current Medications Acetaminophen (Acetaminophen 325 Mg Tab) 650 mg PO Q4H PRN PRN Reason: Pain (Mild 1-3)/fever Albuterol/Ipratropium (Albuterol/Ipratropium 3.0-0.5 Mg/3 Ml Neb Soln) 3 ml NEB Q4H PRN PRN Reason: Shortness Of Breath/wheezing Atenolol (Atenolol 50 Mg Tab) 50 mg PO DAILY [facility] Last Admin: 06/26/21 10:11 Dose: 50 mg Documented by: Docusate Sodium (Docusate Sodium 100 Mg Cap) 100 mg PO BID PRN PRN Reason: Constipation Famotidine (Famotidine 20 Mg Tab) 20 mg PO BEDTIME [facility] Last Admin: 06/26/21 20:15 Dose: 20 mg Documented by: Furosemide (Furosemide 20 Mg/2 Ml Vial) 20 mg IVPUSH DAILY [facility] Last Admin: 06/26/21 08:36 Dose: 20 mg Documented by: Heparin Sodium (Porcine) (Heparin Sodium 5,000 Units/Ml Vial) 5,000 units SUBCUT Q8H [facility] Last Admin: 06/27/21 00:31 Dose: 5,000 units Documented by: Levothyroxine Sodium (Levothyroxine 25 Mcg Tab) 25 mcg PO ACBREAKFAST [facility] Last Admin: 06/27/21 05:52 Dose: 25 mcg Documented by: Lisinopril (Lisinopril 2.5 Mg Tab) 2.5 mg PO DAILY [facility] Last Admin: 06/26/21 10:10 Dose: 2.5 mg Documented by: Ondansetron HCl (Ondansetron 4 Mg Tab.Dis) 4 mg PO Q4H PRN PRN Reason: nausea, able to take PO Oxybutynin Chloride (Oxybutynin 5 Mg Tab.Er) 5 mg PO DAILY [facility] Last Admin: 06/26/21 10:11 Dose: 5 mg Documented by: Oxycodone HCl (Oxycodone 5 Mg Tab) 5 mg PO Q4H PRN PRN Reason: Pain (moderate 4-6) Sertraline HCl (Sertraline 50 Mg Tab) 50 mg PO DAILY [facility] Last Admin: 06/26/21 10:11 Dose: 50 mg Documented by: Sodium Chloride (Sodium Chloride 0.9% 10 Ml Syringe) 10 ml FLUSH ASDIRECTED PRN PRN Reason: Keep Vein Open Temazepam (Temazepam 15 Mg Cap) 15 mg PO BEDTIME PRN PRN Reason: Sleep Zolpidem Tartrate (Zolpidem 10 Mg Tab) 10 mg PO BEDTIME [facility] Last Admin: 06/26/21 20:15 Dose: 10 mg Documented by: Discontinued Medications Enoxaparin Sodium (Enoxaparin 40 Mg/0.4 Ml Syringe) 40 mg SUBCUT DAILY [facility] Furosemide (Furosemide 40 Mg/4 Ml Vial) 40 mg IVPUSH NOW ONE Stop: 06/25/21 13:40 Last Admin: 06/25/21 13:43 Dose: 40 mg Documented by: Sodium Chloride (Normal Saline) 100 mls @ 75 mls/hr IV ASDIRECTED [facility] Last Admin: 06/25/21 12:52 Dose: 75 mls/hr Documented by: Iopamidol (Iopamidol 755 Mg/Ml 100 Ml Bottle) 100 ml IVPUSH ONETIME ONE Stop: 06/25/21 12:47 Last Admin: 06/25/21 12:51 Dose: 100 ml Documented by: Morphine Sulfate (Morphine 2 Mg/Ml Syringe) 2 mg IVPUSH Q2H PRN PRN Reason: Pain (severe 7-10) Stop: 06/26/21 16:15 Sodium Chloride (Sodium Chloride 0.9% 10 Ml Syringe) 10 ml FLUSH ASDIRECTED PRN PRN Reason: Keep Vein Open Last Admin: 06/25/21 11:25 Dose: 10 ml Documented by: Sodium Chloride (Sodium Chloride 0.9% 10 Ml Syringe) 10 ml FLUSH ONETIME PRN PRN Reason: IV FLUSH Last Admin: 06/25/21 12:52 Dose: 10 ml Documented by: - Exam Quality Assessment: Supplemental Oxygen, DVT Prophylaxis General: Alert, Oriented, Cooperative HEENT: Pupils Equal, Pupils Reactive, EOMI Neck: Supple, Trachea Midline, No JVD Lungs: Clear to Auscultation, Normal Respiratory Effort Cardiovascular: Regular Rate, Regular Rhythm GI/Abdominal Exam: Normal Bowel Sounds, Soft, No Distention (Female) Exam: Deferred Back Exam: Normal Inspection, Full Range of Motion Extremities: Normal Inspection, No Pedal Edema Skin: Warm, Dry, Intact Neurological: No New Focal Deficit, Normal Speech Psy/Mental Status: Alert, Normal Affect, Normal Mood - Patient Data Lab Results Last 24 hrs: Laboratory Results - last 24 hr 06/27/21 06/27/21 Range/Units 05:36 05:36 WBC 4.18 (3.98-10.04) K/mm3 RBC 5.23 H (3.98-5.22) M/mm3 Hgb 14.3 (11.2-15.7) gm/dl Hct 48.3 H (34.1-44.9) % MCV 92.4 (79.4-94.8) fl MCH 27.3 (25.6-32.2) pg MCHC 29.6 L (32.2-35.5) g/dl RDW Std Deviation 58.1 H (36.4-46.3) fL Plt Count 106 L (182-369) K/mm3 MPV 9.3 L (9.4-12.3) fl Neut % (Auto) 48.6 (34.0-71.1) % Lymph % (Auto) 37.8 (19.3-51.7) % [place] % (Auto) 12.0 (4.7-12.5) % Eos % (Auto) 1.2 (0.7-5.8) Baso % (Auto) 0.2 (0.1-1.2) % Neut # (Auto) 2.03 (1.56-6.13) K/mm3 Lymph # (Auto) 1.58 (1.18-3.74) K/mm3 [place] # (Auto) 0.50 H (0.24-0.36) K/mm3 Eos # (Auto) 0.05 (0.04-0.36) K/mm3 Baso # (Auto) 0.01 (0.01-0.08) K/mm3 Sodium 146 H (136-145) mEq/L Potassium 3.9 (3.5-5.1) mEq/L Chloride 105 (98-107) mEq/L Carbon Dioxide 38 H (21-32) mEq/L Anion Gap 6.9 (5-15) BUN 23 H (7-18) mg/dL Creatinine 1.0 (0.55-1.02) mg/dL Est Cr Clr Drug Dosing 43.63 mL/min Estimated GFR (MDRD) 53 (>60) mL/min BUN/Creatinine Ratio 23.0 H (14-18) Glucose 89 (70-99) mg/dL Calcium 8.5 (8.5-10.1) mg/dL Total Bilirubin 1.3 H (0.2-1.0) mg/dL AST 14 L (15-37) U/L ALT 13 L (14-59) U/L Alkaline Phosphatase 53 (46-116) U/L Total Protein 5.4 L (6.4-8.2) g/dl Albumin 3.3 L (3.4-5.0) g/dl Globulin 2.1 gm/dL Albumin/Globulin Ratio 1.6 (1-2) Result Diagrams: 06/27/21 05:36 06/27/21 05:36 Sepsis Event Note - Evaluation Sepsis Screening Result: No Definite Risk - Focused Exam Vital Signs: Vital Signs Temp Pulse Resp BP Pulse Ox Pulse Ox 06/27/21 05:51 36.7 C 59 L 17 120/67 95 06/27/21 00:33 36.4 C 60 18 133/90 93 L 06/26/21 22:43 94 L 06/26/21 20:14 36.8 C 63 18 130/64 92 L - Problem List & Annotations (1) Acute respiratory failure SNOMED Code(s): 99322114 Code(s): J96.00 - ACUTE RESPIRATORY FAILURE, UNSP W HYPOXIA OR HYPERCAPNIA Status: Acute Priority: High Current Visit: Yes Qualifiers: Respiratory failure complication: hypoxia Qualified Code(s): J96.01 - Acute respiratory failure with hypoxia (2) Hypoxia SNOMED Code(s): 505705552 Code(s): R09.02 - HYPOXEMIA Status: Acute Priority: High Current Visit: Yes (3) CHF exacerbation SNOMED Code(s): 448044960, 93322242984310 Code(s): I50.9 - HEART FAILURE, UNSPECIFIED Status: Acute Priority: High Current Visit: Yes Qualifiers: Heart failure type: unspecified Qualified Code(s): I50.9 - Heart failure, unspecified (4) Hypertension SNOMED Code(s): 78758111 Code(s): I10 - ESSENTIAL (PRIMARY) HYPERTENSION Status: Chronic Priority: High Current Visit: Yes Qualifiers: Hypertension type: primary hypertension Qualified Code(s): I10 - Essential (primary) hypertension (5) Diabetes mellitus type 2 in obese SNOMED Code(s): 13763244 Code(s): E11.69 - TYPE 2 DIABETES MELLITUS WITH OTHER SPECIFIED COMPLICATION; E66.9 - OBESITY, UNSPECIFIED Status: Chronic Priority: High Current Visit: Yes (6) Chronic renal insufficiency, stage III (moderate) SNOMED Code(s): 994381502 Code(s): N18.30 - CHRONIC KIDNEY DISEASE, STAGE 3 UNSPECIFIED Status: Acute Current Visit: Yes Qualifiers: Chronic kidney disease stage 3 subtype: stage 3b (GFR 30-44) Qualified Code(s): N18.32 - Chronic kidney disease, stage 3b - Problem List Review Problem List Initiated/Reviewed/Updated: Yes - My Orders Last 24 Hours: My Active Orders 06/26/21 09:00 Furosemide [Lasix] 20 mg IVPUSH DAILY Oxybutynin [Oxybutynin ER] 5 mg PO DAILY Sertraline [Zoloft] 50 mg PO DAILY atenoloL [Tenormin] 50 mg PO DAILY lisinopriL [Prinivil] 2.5 mg PO DAILY 06/26/21 Lunch Consistent Carbohydrate Diet [DIET] 06/26/21 11:24 Consult to Physical Therapy [PT Evaluation and Treatment] [CONS] Routine 06/26/21 11:25 OT Evaluation and Treatment [CONS] Routine 06/26/21 13:48 CPAP Adult [RT BiPAP/CPAP] [RC] ASDIRECTED 06/26/21 21:00 Famotidine [Pepcid] 20 mg PO BEDTIME 06/27/21 06:00 Levothyroxine 25 mcg PO ACBREAKFAST - Plan Plan:: Patient is an 81-year-old lady who essentially has new onset congestive heart failure. She is placed on telemetry. The patient will also have oxygen support titrated to keep her saturations around 92%. Input and outputs will be monitored. She has been admitted as an inpatient and will be placed on her reg ular carb constant diet with fluid restriction of 2 L. I have also ordered Lasix at the milligrams IV daily as she is already had Lasix in the emergency department. A 2D echocardiogram is also been ordered. Also, repeat laboratory studies have been ordered. The patient will also have DVT prophylaxis with the use of heparin 5000 units subcu every 8 hours. PT OT will also be ordered for the patient. The patient should be appropriate for discharge in 2 to 3 days. 06/26/2021 The patient is an 81-year-old lady who was admitted secondary to new onset congestive heart failure. The patient is improving today. She will be continued on her Lasix. She is on fluid restriction. The patient has DVT prophylaxis with the use of heparin 5000 units subcutaneously every 8 hours due to her impaired renal function. PT OT has also been ordered for the patient. Repeat laboratory studies have been ordered. 2D echocardiogram results are currently pending. She is to have oxygen to keep her saturations around 92%. Input and outputs have been ordered. Patient should be appropriate for discharge in 1 to 2 days. 06/27/2021 Patient is an 81-year-old lady who will be retained in hospitalization at least 1 more day for diuresis primarily. Her 2D echocardiogram is currently pending evaluation. She is improving today although she still requires oxygen. Her oxygen use will be titrated to keep her saturations around 92%. The patient also has DVT prophylaxis with the use of heparin 5000 units subcutaneously every 8 hours. She is on heparin due to her impaired renal function. PT OT will continue for the patient. Repeat laboratory studies have been ordered for this patient. She has been encouraged to ambulate. Patient should be appropriate for discharge in 1 to 2 days.
[2021-06-27] MEDS: Oxybutynin 5 MG Tab.ER PO SCH (09:08)
[2021-06-27] MEDS: Lisinopril 2.5 MG Tab PO SCH (09:08)
[2021-06-27] MEDS: Sertraline 50 MG Tab PO SCH (09:08)
[2021-06-27] MEDS: Furosemide 20 MG/2 ML VIAL IVPUSH SCH (09:08)
[2021-06-27] MEDS: Atenolol 50 MG Tab PO SCH (09:08)
[2021-06-27] MEDS: Famotidine 20 MG Tab PO SCH (20:17)
[2021-06-27] MEDS: Zolpidem 10 MG Tab PO SCH (20:17)
[2021-06-28] MEDS: Heparin Sodium 5,000 Units/ML Vial SUBCUT SCH ×2 (01:38→08:37)
[2021-06-28] MEDS: Levothyroxine 25 MCG Tab PO SCH (05:44)
[2021-06-28] MEDS: Sertraline 50 MG Tab PO SCH (08:36)
[2021-06-28] MEDS: Lisinopril 2.5 MG Tab PO SCH (08:36)
[2021-06-28] MEDS: Atenolol 50 MG Tab PO SCH (08:36)
[2021-06-28] MEDS: Oxybutynin 5 MG Tab.ER PO SCH (08:36)
[2021-06-28] MEDS: Furosemide 20 MG/2 ML VIAL IVPUSH SCH (08:37)
--- NOTE | 2021-06-28 09:07 | PCM.DCSUM1 ---
Discharge Summary - Hospital Course HPI Initial Comments: The patient was admitted due to shortness of breath and congestive heart failure. Diagnosis: Stroke: No - Discharge Data Discharge Date: 06/28/21 Discharge Disposition: Home, Self-Care 01 Condition: Stable - Referral to Home Health Primary Care Physician: Heena Friend MD - Discharge Diagnosis/Problem(s) (1) Acute respiratory failure SNOMED Code(s): 37045767 ICD Code: J96.00 - ACUTE RESPIRATORY FAILURE, UNSP W HYPOXIA OR HYPERCAPNIA Status: Acute Priority: High Current Visit: Yes Qualifiers: Respiratory failure complication: hypoxia Qualified Code(s): J96.01 - Acute respiratory failure with hypoxia (2) Hypoxia SNOMED Code(s): 536138181 ICD Code: R09.02 - HYPOXEMIA Status: Acute Priority: High Current Visit: Yes (3) CHF exacerbation SNOMED Code(s): 271665123, 67462418809465 ICD Code: I50.9 - HEART FAILURE, UNSPECIFIED Status: Chronic Priority: High Current Visit: Yes Problem Details: HFpEF Qualifiers: Heart failure type: combined systolic and diastolic Qualified Code(s): I50.43 - Acute on chronic combined systolic (congestive) and diastolic (congestive) heart failure (4) Hypertension SNOMED Code(s): 32122594 ICD Code: I10 - ESSENTIAL (PRIMARY) HYPERTENSION Status: Chronic Priority: High Current Visit: Yes Qualifiers: Hypertension type: primary hypertension Qualified Code(s): I10 - Essential (primary) hypertension (5) Diabetes mellitus type 2 in obese SNOMED Code(s): 73181248 ICD Code: E11.69 - TYPE 2 DIABETES MELLITUS WITH OTHER SPECIFIED COMPLICATION; E66.9 - OBESITY, UNSPECIFIED Status: Chronic Priority: High Current Visit: Yes (6) Chronic renal insufficiency, stage III (moderate) SNOMED Code(s): 427014256 ICD Code: N18.30 - CHRONIC KIDNEY DISEASE, STAGE 3 UNSPECIFIED Status: Acute Priority: Medium Current Visit: Yes Qualifiers: Chronic kidney disease stage 3 subtype: stage 3b (GFR 30-44) Qualified Code(s): N18.32 - Chronic kidney disease, stage 3b - Patient Summary/Data Consults: Consultations 06/26/21 11:24 Consult to Physical Therapy [PT Evaluation and Treatment] [CONS] Routine 06/26/21 11:25 OT Evaluation and Treatment [CONS] Routine Hospital Course: The patient is an 81-year-old lady who was admitted to acute hospitalization on 06/25/2021 due to acute onset of congestive heart failure. She was tested and found to be Covid negative. The patient was primarily concerned that she was very short of breath. Upon admission the patient's B-type natriuretic peptide was 6293 pg/mL. She was admitted and gently fluid diuresed with the use of Lasix IV and she tolerated this well. The patient had been on up to 2 L of oxygen via nasal cannula and by day of discharge this was reduced to 1 L via carmella al cannula with 3 L upon exertion. Upon admission the patient had a chest x-ray which was compatible for mild CHF. She also had small right-sided pleural effusion and possible atelectasis in the right lung base. The patient has continued to improve through her short course of hospitalization her breathing had improved subjectively. On 06/26/2021 a 2D echocardiogram was obtained which showed a preserved ejection fraction of 55 to 60%. The patient also had restrictive grade 3 pattern of left ventricular diastolic filling. As well as mildly dilated right and left atrium. The patient also had moderate to severe tricuspid valve regurgitation. Patient was also noted to have severe pulmonary hypertension. It was felt that this was classified as a grade 2.1 which is pulmonary hypertension with preserved ejection fraction. The patient will need to have follow-up with cardiology for specialized medications. The patient should follow-up with her primary care physician soon. The patient will be discharged on Lasix 40 mg p.o. daily and potassium chloride 10 mEq daily. The patient also has been qualified for oxygen at home. I have also explained to the patient and the patient's daughter the necessity of daily weights to help determine fluid status. The patient is to further to have her regular diet as tolerated. She is also to have activity as tolerated. The patient has been hemodynamically stable and she is discharged from acute hospitalization with the recommendations listed above. - Patient Instructions Diet: Heart Healthy Diet, Usual Diet as Tolerated Fluid Restriction: 2000 mL Activity: As Tolerated - Discharge Plan *PRESCRIPTION DRUG MONITORING PROGRAM REVIEWED*: No *COPY OF PRESCRIPTION DRUG MONITORING REPORT IN PATIENT ANABEL: No Prescriptions/Med Rec: Potassium Chloride [Klor-Con M10] 10 meq PO DAILY #30 tab.er.prt Furosemide [Lasix] 40 mg PO DAILY #30 tab Home Medications: Home Meds Levothyroxine 25 mcg PO ACBREAKFAST 10/26/15 [History] atenoloL [Atenolol] 50 mg PO DAILY 10/26/15 [History] traMADol HCl [Tramadol HCl] 50 mg PO TID PRN 10/26/15 [History] Famotidine 20 mg PO BEDTIME 06/25/21 [History] Ondansetron [Zofran ODT] 4 mg PO TID PRN 06/25/21 [History] Oxybutynin [Oxybutynin ER] 5 mg PO DAILY 06/25/21 [History] Rosuvastatin [Crestor] 5 mg PO BEDTIME 06/25/21 [History] Sertraline [Zoloft] 50 mg PO DAILY 06/25/21 [History] Zolpidem [Ambien] 10 mg PO BEDTIME 06/25/21 [History] lisinopriL [Lisinopril] 2.5 mg PO DAILY 06/25/21 [History] Furosemide [Lasix] 40 mg PO DAILY #30 tab 06/28/21 [Rx] Potassium Chloride [Klor-Con M10] 10 meq PO DAILY #30 tab.er.prt 06/28/21 [Rx] Oxygen Therapy Mode: Nasal Cannula Oxygen Flow Rate (L/min): 2 Patient Handouts: Heart Failure Action Plan, Heart Failure, Diagnosis, [id number] Forms: ED Department Discharge Referrals: Heena Friend MD [Primary Care Provider] - 07/16/21 10:00 am (Please arrive at 9:30 for check) - Discharge Summary/Plan Comment DC Time >30 min.: Yes Total # of Minutes for Discharge Time: 50 - General Info Date of Service: 06/28/21 Admission Dx/Problem (Free Text: Admission Diagnosis/Problem Admission Diagnosis/Problem new onset congestive heart failure with hypoxia, severe pulmonary hypertension Subjective Update: The patient is doing well today. She is breathing better. She is looking forward to returning home. The patient feels like she can go home today. Functional Status: Reports: Pain Controlled, Tolerating Diet. Denies: New Symptoms - Review of Systems General: Reports: No Symptoms HEENT: Reports: No Symptoms Pulmonary: Reports: No Symptoms Cardiovascular: Reports: No Symptoms Gastrointestinal: Reports: No Symptoms Genitourinary: Reports: No Symptoms Musculoskeletal: Reports: No Symptoms Skin: Reports: No Symptoms Neurological: Reports: No Symptoms Psychiatric: Reports: No Symptoms - Patient Data Vitals - Most Recent: Last Vital Signs Temp 36.6 C 06/28/21 03:39 Pulse 55 L 06/28/21 08:36 Resp 18 06/28/21 03:39 BP 128/66 06/28/21 08:36 Pulse Ox 91 L 06/28/21 03:39 Weight - Most Recent: 102.512 kg I&O - Last 24 hours: Intake & Output 06/27/21 06/28/21 06/28/21 22:59 06:59 14:59 Intake Total 540 400 Output Total 1350 600 Balance -810 -200 Lab Results - Last 24 hrs: Laboratory Results - last 24 hr 06/28/21 06/28/21 Range/Units 05:28 05:28 WBC 4.12 (3.98-10.04) K/mm3 RBC 5.22 (3.98-5.22) M/mm3 Hgb 14.2 (11.2-15.7) gm/dl Hct 48.2 H (34.1-44.9) % MCV 92.3 (79.4-94.8) fl MCH 27.2 (25.6-32.2) pg MCHC 29.5 L (32.2-35.5) g/dl RDW Std Deviation 57.6 H (36.4-46.3) fL Plt Count 114 L (182-369) K/mm3 MPV 9.3 L (9.4-12.3) fl Neut % (Auto) 46.1 (34.0-71.1) % Lymph % (Auto) 40.8 (19.3-51.7) % [place] % (Auto) 10.9 (4.7-12.5) % Eos % (Auto) 1.7 (0.7-5.8) Baso % (Auto) 0.5 (0.1-1.2) % Neut # (Auto) 1.90 (1.56-6.13) K/mm3 Lymph # (Auto) 1.68 (1.18-3.74) K/mm3 [place] # (Auto) 0.45 H (0.24-0.36) K/mm3 Eos # (Auto) 0.07 (0.04-0.36) K/mm3 Baso # (Auto) 0.02 (0.01-0.08) K/mm3 Sodium 144 (136-145) mEq/L Potassium 3.7 (3.5-5.1) mEq/L Chloride 106 (98-107) mEq/L Carbon Dioxide 35 H (21-32) mEq/L Anion Gap 6.7 (5-15) BUN 21 H (7-18) mg/dL Creatinine 0.9 (0.55-1.02) mg/dL Est Cr Clr Drug Dosing 48.48 mL/min Estimated GFR (MDRD) > 60 (>60) mL/min BUN/Creatinine Ratio 23.3 H (14-18) Glucose 96 (70-99) mg/dL Calcium 8.6 (8.5-10.1) mg/dL Total Bilirubin 1.2 H (0.2-1.0) mg/dL AST 16 (15-37) U/L ALT 6 L (14-59) U/L Alkaline Phosphatase 50 (46-116) U/L C-Reactive Protein <0.2 (<1.0) mg/dL Total Protein 5.7 L (6.4-8.2) g/dl Albumin 3.2 L (3.4-5.0) g/dl Globulin 2.5 gm/dL Albumin/Globulin Ratio 1.3 (1-2) Med Orders - Current: Current Medications Acetaminophen (Acetaminophen 325 Mg Tab) 650 mg PO Q4H PRN PRN Reason: Pain (Mild 1-3)/fever Albuterol/Ipratropium (Albuterol/Ipratropium 3.0-0.5 Mg/3 Ml Neb Soln) 3 ml NEB Q4H PRN PRN Reason: Shortness Of Breath/wheezing Atenolol (Atenolol 50 Mg Tab) 50 mg PO DAILY [facility] Last Admin: 06/28/21 08:36 Dose: 50 mg Documented by: Docusate Sodium (Docusate Sodium 100 Mg Cap) 100 mg PO BID PRN PRN Reason: Constipation Famotidine (Famotidine 20 Mg Tab) 20 mg PO BEDTIME JOSÉ ANTONIO Last Admin: 06/27/21 20:17 Dose: 20 mg Documented by: Furosemide (Furosemide 20 Mg/2 Ml Vial) 20 mg IVPUSH DAILY JOSÉ ANTONIO Last Admin: 06/28/21 08:37 Dose: 20 mg Documented by: Heparin Sodium (Porcine) (Heparin Sodium 5,000 Units/Ml Vial) 5,000 units SUBCUT Q8H [facility] Last Admin: 06/28/21 08:37 Dose: 5,000 units Documented by: Levothyroxine Sodium (Levothyroxine 25 Mcg Tab) 25 mcg PO ACBREAKFAST [facility] Last Admin: 06/28/21 05:44 Dose: 25 mcg Documented by: Lisinopril (Lisinopril 2.5 Mg Tab) 2.5 mg PO DAILY [facility] Last Admin: 06/28/21 08:36 Dose: 2.5 mg Documented by: Ondansetron HCl (Ondansetron 4 Mg Tab.Dis) 4 mg PO Q4H PRN PRN Reason: nausea, able to take PO Oxybutynin Chloride (Oxybutynin 5 Mg Tab.Er) 5 mg PO DAILY [facility] Last Admin: 06/28/21 08:36 Dose: 5 mg Documented by: Oxycodone HCl (Oxycodone 5 Mg Tab) 5 mg PO Q4H PRN PRN Reason: Pain (moderate 4-6) Sertraline HCl (Sertraline 50 Mg Tab) 50 mg PO DAILY [facility] Last Admin: 06/28/21 08:36 Dose: 50 mg Documented by: Sodium Chloride (Sodium Chloride 0.9% 10 Ml Syringe) 10 ml FLUSH ASDIRECTED PRN PRN Reason: Keep Vein Open Temazepam (Temazepam 15 Mg Cap) 15 mg PO BEDTIME PRN PRN Reason: Sleep Zolpidem Tartrate (Zolpidem 10 Mg Tab) 10 mg PO BEDTIME [facility] Last Admin: 06/27/21 20:17 Dose: 10 mg Documented by: Discontinued Medications Enoxaparin Sodium (Enoxaparin 40 Mg/0.4 Ml Syringe) 40 mg SUBCUT DAILY [facility] Furosemide (Furosemide 40 Mg/4 Ml Vial) 40 mg IVPUSH NOW ONE Stop: 06/25/21 13:40 Last Admin: 06/25/21 13:43 Dose: 40 mg Documented by: Sodium Chloride (Normal Saline) 100 mls @ 75 mls/hr IV ASDIRECTED [facility] Last Admin: 06/25/21 12:52 Dose: 75 mls/hr Documented by: Iopamidol (Iopamidol 755 Mg/Ml 100 Ml Bottle) 100 ml IVPUSH ONETIME ONE Stop: 06/25/21 12:47 Last Admin: 06/25/21 12:51 Dose: 100 ml Documented by: Morphine Sulfate (Morphine 2 Mg/Ml Syringe) 2 mg IVPUSH Q2H PRN PRN Reason: Pain (severe 7-10) Stop: 06/26/21 16:15 Sodium Chloride (Sodium Chloride 0.9% 10 Ml Syringe) 10 ml FLUSH ASDIRECTED PRN PRN Reason: Keep Vein Open Last Admin: 06/25/21 11:25 Dose: 10 ml Documented by: Sodium Chloride (Sodium Chloride 0.9% 10 Ml Syringe) 10 ml FLUSH ONETIME PRN PRN Reason: IV FLUSH Last Admin: 06/25/21 12:52 Dose: 10 ml Documented by: - Exam Quality Assessment: Reports: Supplemental Oxygen, DVT Prophylaxis General: Reports: Alert, Oriented, Cooperative, No Acute Distress HEENT: Reports: Pupils Equal, Pupils Reactive, EOMI, Mucous Membr. Moist/[place] Neck: Reports: Supple, Trachea Midline, No JVD Lungs: Reports: Clear to Auscultation, Normal Respiratory Effort Cardiovascular: Reports: Regular Rate, Regular Rhythm GI/Abdominal Exam: Normal Bowel Sounds, No Distention (Female) Exam: Deferred Rectal (Female) Exam: Deferred Back Exam: Reports: Normal Inspection, Full Range of Motion Extremities: Normal Inspection, No Pedal Edema Skin: Reports: Warm, Dry, Intact Neurological: Reports: No New Focal Deficit, Normal Gait, Normal Speech Psy/Mental Status: Reports: Alert, Normal Affect, Normal Mood
[2021-06-28 13:25] VITALS: BP 135/68; PULSE 57
== END 2021-06-28 14:27 | disposition home or self-care (01) | DRG 291 ==
LOC: JD.ED 10:48 → JD.MS 15:38
PROVIDERS: ADMIT Internal Medicine; ATTEND Internal Medicine
DX: R09.02 Hypoxemia (principal); I13.0 Hypertensive heart and chronic kidney disease with heart failure and stage 1 through stage 4 chronic kidney disease, or unspecified chronic kidney disease; I11.0 Hypertensive heart disease with heart failure; I50.43 Acute on chronic combined systolic (congestive) and diastolic (congestive) heart failure; J96.01 Acute respiratory failure with hypoxia; E11.9 Type 2 diabetes mellitus without complications; N18.32 Chronic kidney disease, stage 3b; E11.22 Type 2 diabetes mellitus with diabetic chronic kidney disease; Z20.822 Contact with and (suspected) exposure to COVID-19; I07.1 Rheumatic tricuspid insufficiency; I27.20 Pulmonary hypertension, unspecified; H35.30 Unspecified macular degeneration; G47.30 Sleep apnea, unspecified; M19.90 Unspecified osteoarthritis, unspecified site; E03.9 Hypothyroidism, unspecified; Z87.891 Personal history of nicotine dependence; Z88.8 Allergy status to other drugs, medicaments and biological substances; Z79.890 Hormone replacement therapy; Z79.899 Other long term (current) drug therapy
CPT/HCPCS: 0240U; 36415; 71045; 71275; 80053; 83036; 83605; 83735; 83880; 84484; 85025; 85379; 85610; 85730; 86140; 93005; 93306; 94761; 94762; 97116; 97162; 96374; 99285-25; A9270-GY; J1644; J1940; Q9967

== ENCOUNTER 2024-11-02 17:55 | Emergency (ER) | payer MEDICARE, BC ==
[2024-11-02] MEDS ORDERED: Sodium Chloride 0.9% 10 ML Syringe FLUSH PRN (18:17)
[2024-11-02 18:29] LABS: BASOPHILS PERCENT AUTO 0.2 % (0.0-1.0); EOSINOPHILS PERCENT AUTO 0.7 % (0.0-6.0); HEMATOCRIT 42.3 % (37.0-47.0); HEMOGLOBIN 13.2 gm/dl (12.0-16.0); IMMATURE GRAN ABSOLUTE AUTO 0.08 K/mm3 (0.00-0.05); LYMPHOCYTES ABSOLUTE AUTO 1.6 K/mm3 (1.0-4.8); LYMPHOCYTES PERCENT AUTO 39.6 % (24.0-44.0); MEAN CORPUSCULAR HEMOGLOBIN 28.1 pg (28.0-32.0); MEAN CORPUSCULAR HGB CONC 31.2 g/dl (32.0-36.0); MONOCYTES ABSOLUTE AUTO 0.3 K/mm3 (0.0-0.8); MONOCYTES PERCENT AUTO 8.1 % (0.0-8.0); NEUTROPHILS PERCENT AUTO 49.4 % (41.0-71.0); PLATELET COUNT,PLT 97 K/mm3 (150-400); WHITE BLOOD CELL COUNT,WBC 4.09 K/mm3 (3.9-11.3)
[2024-11-02 18:39] LABS: A/G RATIO 1.3 (1-2); ALBUMIN 3.7 g/dl (3.4-5.0); ANION GAP 9.3 (5-15); BILIRUBIN TOTAL 0.9 mg/dL (0.2-1.0); BUN/CREATININE RATIO 22.7 (14-18); CALCIUM 9.1 mg/dL (8.5-10.1); CREATININE 1.1 mg/dL (0.55-1.02); EST CRCL DRUG DOSING (CG) 37.68 mL/min; POTASSIUM,K 4.3 mEq/L (3.5-5.1); PROTEIN TOTAL,TP 6.5 g/dl (6.4-8.2)
[2024-11-02] MEDS: Acetaminophen 325 MG Tab PO ONE (18:44)
[2024-11-02] MEDS: Sodium Chloride 0.9% 10 ML Syringe FLUSH ONE (18:46)
[2024-11-02] MEDS: Iopamidol 612 MG/ML 30 ML SDV IVPUSH ONE (18:46)
[2024-11-02] MEDS: Iopamidol 612 MG/ML 100 ML Bottle IVPUSH ONE (18:46)
[2024-11-02 19:28] LABS: SLIDE REVIEW ABNORMAL SMEAR
[2024-11-02] MEDS ORDERED: Naloxone 0.4 MG/ML SDV IVPUSH PRN (19:53)
[2024-11-02] MEDS ORDERED: Morphine 4 MG/ML Syringe IVPUSH ONE (19:53)
[2024-11-02] MEDS: HYDROmorphone 0.5 MG/0.5 ML Syringe IVPUSH ONE (20:21)
[2024-11-02 22:42] VITALS: BP 131/86; PULSE 99
== END 2024-11-02 21:30 | disposition home or self-care (01) ==
LOC: JD.ED 17:55
DX: S00.03XA Contusion of scalp, initial encounter (principal); M54.50 Low back pain, unspecified; R16.1 Splenomegaly, not elsewhere classified; R59.1 Generalized enlarged lymph nodes; N28.9 Disorder of kidney and ureter, unspecified; I11.0 Hypertensive heart disease with heart failure; I50.9 Heart failure, unspecified; E11.9 Type 2 diabetes mellitus without complications; E03.9 Hypothyroidism, unspecified; Z79.01 Long term (current) use of anticoagulants; Z88.8 Allergy status to other drugs, medicaments and biological substances; Z79.890 Hormone replacement therapy; Z79.899 Other long term (current) drug therapy; Z90.710 Acquired absence of both cervix and uterus; W54.1XXA Struck by dog, initial encounter; Y93.89 Activity, other specified
CPT/HCPCS: 36415; 70450; 70450-26; 71045; 71045-26; 72132; 72132-26; 74177; 74177-26; 80053; 83690; 84484; 85025; 96374; 99284; 99284-25; A9270-GY; Q9967

== ENCOUNTER 2024-11-06 13:26 | Emergency (ER) | payer MEDICARE, BC ==
[2024-11-06] MEDS: Oxymetazoline 0.05% Nasal Spray 30 ML Bottle NAS ONE (14:01)
[2024-11-06] MEDS ORDERED: Naloxone 0.4 MG/ML SDV IVPUSH PRN (14:42)
[2024-11-06] MEDS: fentaNYL 100 MCG/2 ML SDV IM ONE (15:14)
[2024-11-06 17:26] VITALS: BP 133/88; PULSE 90
== END 2024-11-06 16:07 | disposition home or self-care (01) ==
LOC: JD.ED 13:26
DX: R04.0 Epistaxis (principal); I11.0 Hypertensive heart disease with heart failure; I50.9 Heart failure, unspecified; E03.9 Hypothyroidism, unspecified; I48.91 Unspecified atrial fibrillation; J44.9 Chronic obstructive pulmonary disease, unspecified; Z88.8 Allergy status to other drugs, medicaments and biological substances; Z79.890 Hormone replacement therapy; Z79.899 Other long term (current) drug therapy; Z79.01 Long term (current) use of anticoagulants; Z87.891 Personal history of nicotine dependence
CPT/HCPCS: 96372; 99283; A9270; J3010

== ENCOUNTER 2024-11-09 13:54 | Emergency (ER) | payer MEDICARE, BC | END 2024-11-09 14:30 | LOC: JD.ED 13:54 | DX: Z53.21 Procedure and treatment not carried out due to patient leaving prior to being seen by health care provider (principal) ==

== ENCOUNTER 2024-11-20 15:58 | Emergency (ER) | payer MEDICARE, BC ==
[2024-11-20 19:06] LABS: APPEARANCE,URINE CLEAR (Clear); BILIRUBIN,URINE NEGATIVE (Negative); COLOR,URINE YELLOW (Yellow); GLUCOSE,URINE NEGATIVE (Negative); KETONES,URINE NEGATIVE (Negative); LEUKOCYTE ESTERASE,URINE TRACE (Negative); NITRITE,URINE NEGATIVE (Negative); OCCULT BLOOD,URINE NEGATIVE (Negative); PROTEIN,URINE TRACE (Negative); UROBILINOGEN,URINE 0.2 (0.2-1.0)
[2024-11-20 19:09] VITALS: BP 149/83; PULSE 90
[2024-11-20] MEDS: Acetaminophen/oxyCODONE 325-5 MG Tab PO ONE ×2 (19:37→19:38)
[2024-11-20 19:43] LABS: BACTERIA,URINE MODERATE /hpf (FEW); RBC,URINE 0-5 /hpf (0-5)
[2024-11-20 19:44] LABS: MUCUS,URINE MODERATE /hpf (FEW)
== END 2024-11-20 19:45 | disposition home or self-care (01) ==
LOC: JD.ED 15:58
DX: M54.50 Low back pain, unspecified (principal); I11.0 Hypertensive heart disease with heart failure; I50.9 Heart failure, unspecified; E03.9 Hypothyroidism, unspecified; Z88.8 Allergy status to other drugs, medicaments and biological substances; Z90.710 Acquired absence of both cervix and uterus; Z79.899 Other long term (current) drug therapy
CPT/HCPCS: 81001; 99283; A9270; 99284

== ENCOUNTER 2025-01-21 12:11 | Emergency (ER) | payer MEDICARE, BC ==
[2025-01-21 12:32] VITALS: BP 129/87; PULSE 115
[2025-01-21 12:56] LABS: BASOPHILS PERCENT AUTO 0.2 % (0.0-1.0); EOSINOPHILS PERCENT AUTO 0.2 % (0.0-6.0); HEMATOCRIT 43.6 % (37.0-47.0); HEMOGLOBIN 13.7 gm/dl (12.0-16.0); IMMATURE GRAN ABSOLUTE AUTO 0.21 K/mm3 (0.00-0.05); IMMATURE GRAN PERCENT AUTO 3.6 % (0.0-0.4); LYMPHOCYTES ABSOLUTE AUTO 1.5 K/mm3 (1.0-4.8); LYMPHOCYTES PERCENT AUTO 26.5 % (24.0-44.0); MEAN CORPUSCULAR HEMOGLOBIN 28.2 pg (28.0-32.0); MEAN CORPUSCULAR HGB CONC 31.4 g/dl (32.0-36.0); MEAN CORPUSCULAR VOLUME 89.9 fl (83.0-99.0); MEAN PLATELET VOLUME 9.9 fl (9.4-12.3); MONOCYTES ABSOLUTE AUTO 0.7 K/mm3 (0.0-0.8); MONOCYTES PERCENT AUTO 12.5 % (0.0-8.0); NEUTROPHILS ABSOLUTE AUTO 3.3 K/mm3 (1.8-7.7); PLATELET COUNT,PLT 92 K/mm3 (150-400); RED BLOOD CELL COUNT 4.85 M/mm3 (4.10-5.30); WHITE BLOOD CELL COUNT,WBC 5.78 K/mm3 (3.9-11.3)
[2025-01-21 13:17] LABS: SLIDE REVIEW ABNORMAL SMEAR
[2025-01-21 13:25] LABS: A/G RATIO 1.1 (1-2); ALBUMIN 3.5 g/dl (3.4-5.0); ANION GAP 11.8 (5-15); BILIRUBIN TOTAL 2.6 mg/dL (0.2-1.0); BUN/CREATININE RATIO 15.5 (14-18); C-REACTIVE PROTEIN 6.54 mg/dL (<0.30); CREATININE 1.1 mg/dL (0.55-1.02); EST CRCL DRUG DOSING (CG) 36.28 mL/min; POTASSIUM,K 3.8 mEq/L (3.5-5.1); PROTEIN TOTAL,TP 6.7 g/dl (6.4-8.2)
[2025-01-21] MEDS: Metoclopramide 10 MG/2 ML SDV IVPUSH ONE (13:32)
[2025-01-21] MEDS: Ondansetron 4 MG/2 ML SDV IVPUSH ONE (15:33)
[2025-01-21] MEDS: Azithromycin 250 MG Tab PO ONE (15:33)
[2025-01-21] MEDS: Amoxicillin/Clavulanate K 875-125 MG Tab PO ONE (15:33)
[2025-01-22] MEDS: Sodium Chloride 0.9% 500 ML IV ONE (05:21)
[2025-01-22] MEDS: Ondansetron 4 MG/2 ML SDV IVPUSH ONE (05:22)
== END 2025-01-21 15:30 | disposition home or self-care (01) ==
LOC: JD.ED 12:11
DX: J18.9 Pneumonia, unspecified organism (principal); I11.0 Hypertensive heart disease with heart failure; I50.9 Heart failure, unspecified; I48.91 Unspecified atrial fibrillation; J44.9 Chronic obstructive pulmonary disease, unspecified; E03.9 Hypothyroidism, unspecified; Z90.710 Acquired absence of both cervix and uterus; Z79.899 Other long term (current) drug therapy; Z79.890 Hormone replacement therapy; Z88.8 Allergy status to other drugs, medicaments and biological substances
CPT/HCPCS: 36415; 71045; 80053; 83690; 83880; 84484; 85025; 86140; 93005; 96374; 96375; 99284; A9270; J2405; J2765